=== PATIENT | male | born 1945 | race Caucasian/White ===

== ENCOUNTER 2016-10-03 14:04 | Observation (INO) | payer MEDICARE, OTHER ==
[~2016-10-03 14:04] MED LIST: Lactated Ringers 1,000 ML IV SCH
[2016-10-03] MEDS: Ciprofloxacin in D5W 400 MG in Premix Bag 1 BAG IV SCH ×4 (14:52→15:12)
[2016-10-03] MEDS ORDERED: Ampicillin 1 GM in Sodium Chloride 0.9% 50 ML IV SCH ×2 (15:45→15:50)
[2016-10-03] MEDS: Ampicillin 1 GM in Sodium Chloride 0.9% 50 ML IV SCH ×2 (16:10→21:04)
[2016-10-03] MEDS: Lactated Ringers 1,000 ML IV SCH (16:13)
[2016-10-03 16:40] LABS: CHLORIDE,CL 105 mmol/L (98-110); SODIUM,NA 139 mmol/L (136-146)
[2016-10-03] MEDS ORDERED: METFORMIN HCL 1000 MG PO SCH (18:00)
--- NOTE | 2016-10-03 20:21 | PCM.PREANE ---
Preanesthetic Assessment - ANESTHESIA/TRANSFUSION/FAMILY HX Anesthesia/Transfusion History: No Prior Transfusion(s), Prior Anesthesia Type of Anesthesia Reaction: Denies: Allergy, Anesthesia Awareness, Excessive Somnolence, Excessive Nausea/Vomiting, Excessive Itching, Excessive Shivering, Malignant Hyperthermia, Malignant Hyperthermia, Family History, Pseudocholinesterase Deficiency, Pseudocholinesterase Deficiency, Family History of, Urinary Retention, Unknown, Other (see below) Family History of Anesthesia Reaction: No Intubation History: Unknown - REVIEW OF SYSTEMS Constitutional: Reports: no symptoms 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: no symptoms Respiratory: Reports: no symptoms Cardiovascular: Reports: no symptoms, blood pressure problem (hypertension, controlled) GI: Reports: no symptoms Other: Reports: easy bleeding (attributes to Eliquis), easy bruising, diabetes - PHYSICAL ASSESSMENT O2 Sat by Pulse Oximetry: 96 RR: 16 Vital Signs: Last Vital Signs Temp 36.3 C 10/03/16 16:00 Pulse 78 10/03/16 16:00 Resp 16 10/03/16 16:00 BP 119/67 10/03/16 16:00 Pulse Ox 96 10/03/16 16:00 Height: 1.88 m Weight: 100.2 kg NPO Status Date: 10/03/16 NPO Status Time: 23:55 ASA Class: 3 Mental Status: alert & oriented x3 Airway Class: Mallampati = 3 Dentition: Reports: partial (upper) Thyro-Mental Finger Breadths: 3 Mouth Opening Finger Breadths: 3 ROM/Head Extension: full Respiratory Status: lungs clear to auscultation bilaterally Cardiovascular Status: regular rate & rhythm, no murmur, blood pressure WNL - LAB Values: Laboratory Last Values WBC 8.57 K/uL (4.0-11.0) 10/03/16 16:02 RBC 4.71 M/uL (4.50-5.90) 10/03/16 16:02 Hgb 14.6 g/dL (13.0-17.0) 10/03/16 16:02 Hct 43.4 % (38.0-50.0) 10/03/16 16:02 MCV 92.1 fL (80.0-98.0) 10/03/16 16:02 MCH 31.0 pg (27.0-32.0) 10/03/16 16:02 MCHC 33.6 g/dL (31.0-37.0) 10/03/16 16:02 RDW Std Deviation 43.3 fl (28.0-62.0) 10/03/16 16:02 RDW Coeff of Kevin 13 % (11.0-15.0) 10/03/16 16:02 Plt Count 42 K/uL (150-400) L 10/03/16 16:02 MPV 10.00 fL (7.40-12.00) 10/03/16 16:02 Neut % (Auto) 76.8 % (48.0-80.0) 10/03/16 16:02 Lymph % (Auto) 14.4 % (16.0-40.0) L 10/03/16 16:02 [place] % (Auto) 7.8 % (0.0-15.0) 10/03/16 16:02 Eos % (Auto) 0.9 % (0.0-7.0) 10/03/16 16:02 Baso % (Auto) 0.1 % (0.0-1.5) 10/03/16 16:02 Neut # 6.6 K/uL (1.4-5.7) H 10/03/16 16:02 Lymph # 1.2 K/uL (0.6-2.4) 10/03/16 16:02 [place] # 0.7 K/uL (0.0-0.8) 10/03/16 16:02 Eos # 0.1 K/uL (0.0-0.7) 10/03/16 16:02 Baso # 0.0 K/uL (0.0-0.1) 10/03/16 16:02 Nucleated RBC % 0.0 /100WBC 10/03/16 16:02 Nucleated RBCs # 0 K/uL 10/03/16 16:02 Sodium 139 mmol/L (136-146) 10/03/16 16:02 Potassium 4.4 mmol/L (3.5-5.1) 10/03/16 16:02 Chloride 105 mmol/L (98-110) 10/03/16 16:02 Carbon Dioxide 26 mmol/L (21-31) 10/03/16 16:02 BUN 18 mg/dL (6.0-23.0) 10/03/16 16:02 Creatinine 1.0 mg/dL (0.6-1.5) 10/03/16 16:02 Est Cr Clr Drug Dosing 78.78 mL/min 10/03/16 16:02 Estimated GFR (MDRD) > 60.0 ml/min 10/03/16 16:02 Glucose 144 mg/dL (60-110) H 10/03/16 16:02 POC Glucose 117 mg/dL (60-110) H 10/03/16 16:37 Calcium 9.2 mg/dL (8.8-10.8) 10/03/16 16:02 Total Bilirubin 0.6 mg/dL (0.1-1.5) 10/03/16 16:02 AST 13 IU/L (5-40) 10/03/16 16:02 ALT 13 IU/L (8-54) 10/03/16 16:02 Alkaline Phosphatase 41 (40-150) 10/03/16 16:02 Total Protein 6.5 g/dL (6.0-8.0) 10/03/16 16:02 Albumin 3.6 g/dL (3.4-4.8) 10/03/16 16:02 Globulin 2.9 g/dL (2.0-3.5) 10/03/16 16:02 Albumin/Globulin Ratio 1.2 (1.3-2.8) L 10/03/16 16:02 - ALLERGIES Allergies/Adverse Reactions: Allergies Allergy/AdvReac Type Severity Reaction Status Date / Time ciprofloxacin Allergy Rash Uncoded 10/03/16 16:11 purple grapes Allergy Rash Uncoded 09/30/16 08:59 - ANESTHESIA PLAN Anesthesia Type Planned: general anesthesia, spinal (anesthetic options discussed with patient. General anesthesia vs spinal. Pt is agreeable to either plan. Plt count only at 42,000 so will re evaluate options prior to surgery. If platelet count continues to be low, will plan for general surgery.) - ACKNOWLEDGEMENTS Pt an appropriate candidate for the planned anesthesia: Yes Alternatives and risks of anesthesia discussed w pt/guardian: Yes Pt/Guardian understands and agree with anesthesia plan: Yes PreAnesthesia Questionnaire - Past Health History Medical/Surgical History: Denies Medical/Surgical History HEENT History: Reports: Impaired vision Cardiovascular History: Reports: Afib (Has had for about 2 years. Denies chest pain or dyspnea with activity.), High cholesterol, Hypertension Gastrointestinal History: Reports: PUD (History of) Genitourinary History: Reports: Prostate disorder, Renal calculus Other Genitourinary History: Pt reported history of prostate enlargement several years ago, states did not undergo surgery. Also states history of kidney stones both kidneys. Musculoskeletal History: Reports: Fracture Neurological History: Reports: Neuropathy, peripheral Endocrine/Metabolic History: Reports: Diabetes, type II Hematologic History: Reports: Anticoagulation therapy (discontinued Eliquis 4 days ago, has been taking baby aspirin 81 mg.) Oncologic (Cancer) History: Reports: Basal cell carcinoma - Infectious Disease History Infectious Disease History: Reports: Chicken pox, Influenza, Measles, Mumps - Past Surgical History HEENT Surgical History: Reports: None Cardiovascular Surgical History: Reports: None GI Surgical History: Reports: None Male Surgical History: Reports: None Endocrine Surgical History: Reports: None Neurological Surgical History: Reports: None Musculoskeletal Surgical History: Reports: None Oncologic Surgical History: Reports: Other (see below) Other Oncologic Surgeries/Procedures: skin biopsy - SUBSTANCE USE Smoking Status *Q: Never Smoker Second Hand Smoke Exposure: No Recreational Drug Use History: No - HOME MEDS Home Medications: Home Meds Dutasteride [Avodart] 0.5 mg PO DAILY 09/21/16 [History] Lisinopril 40 mg PO DAILY 09/21/16 [History] Metoprolol Succinate [Toprol XL] 50 mg PO BEDTIME 09/21/16 [History] Pregabalin [Lyrica] 50 mg PO BEDTIME 09/21/16 [History] Simvastatin [Zocor] 20 mg PO BEDTIME 09/21/16 [History] Tamsulosin [Flomax] 0.4 mg PO DAILY 09/21/16 [History] metFORMIN HCl [Metformin HCl ER] 1,000 mg PO DAILY 09/21/16 [History] Aspirin 1 tab PO DAILY 09/30/16 [History] Apixaban [Eliquis] 5 mg PO BID 10/03/16 [History] - CURRENT (IN HOUSE) MEDS Current Meds: Current Medications Lactated Ringer's (Ringers, Lactated) 1,000 mls @ 100 mls/hr IV ASDIRECTED IES[facility] Last Admin: 10/03/16 16:13 Dose: 100 mls/hr Ampicillin Sodium 1 gm/ Sodium (Chloride) 50 mls @ 100 mls/hr IV Q6H [facility] Last Admin: 10/03/16 16:10 Dose: 100 mls/hr Tobramycin 120 mg/ Sodium (Chloride) 103 mls @ 200 mls/hr IV Q12H [facility] Lisinopril (Prinivil) 40 mg PO DAILY [facility] Metformin HCl (Glucophage Xr) 1,000 mg PO DAILY [facility] Metoprolol Succinate (Toprol Xl) 50 mg PO BEDTIME [facility] Pregabalin (Lyrica) 50 mg PO BEDTIME [facility] Simvastatin (Zocor) 20 mg PO BEDTIME [facility] Discontinued Medications Ciprofloxacin/Dextrose 400 mg/ (Premix) 200 mls @ 200 mls/hr IV Q12H [facility] Last Admin: 10/03/16 15:12 Dose: 200 mls/hr Lactated Ringer's (Ringers, Lactated) 1,000 mls @ 50 mls/hr IV ASDIRECTED [facility] Last Admin: 10/03/16 15:08 Dose: 50 mls/hr Tobramycin 120 mg/ Sodium (Chloride) 103 mls @ 100 mls/hr IV Q12HR ONE Stop: 10/03/16 11:31 Last Admin: 10/03/16 16:03 Dose: Not Given Tobramycin 120 mg/ Sodium (Chloride) 103 mls @ 200 mls/hr IV Q12H [facility] Last Admin: 10/03/16 16:47 Dose: 200 mls/hr Ampicillin Sodium 1 gm/ Sodium (Chloride) 50 mls @ 100 mls/hr IV Q6H [facility] Last Admin: 10/03/16 16:04 Dose: Not Given Ampicillin Sodium 1 gm/ Sodium (Chloride) 50 mls @ 100 mls/hr IV Q6H [facility] Last Admin: 10/03/16 16:03 Dose: Not Given Non-Formulary Medication (Metformin Hcl [Metformin Hcl Er]) 1,000 mg PO DAILY [facility]
[2016-10-03] MEDS ORDERED: Simvastatin 20 MG Tab PO SCH (21:00)
[2016-10-03] MEDS ORDERED: Metoprolol Succinate 50 MG Tab.ER PO SCH (21:00)
[2016-10-03] MEDS ORDERED: Pregabalin 50 MG Cap PO SCH (21:00)
[2016-10-04] MEDS: Lactated Ringers 1,000 ML IV SCH (03:38)
[2016-10-04] MEDS: Ampicillin 1 GM in Sodium Chloride 0.9% 50 ML IV SCH ×2 (03:40→10:36)
[2016-10-04 08:08] VITALS: BP 135/89
--- NOTE | 2016-10-04 08:53 | PCM.SN ---
- Free Text/Narrative Note: I was asked by Dr Mejia to see this man for low platelets. He has a history of atrial fibrillation. He had been on eliquis. His platelets yesterday were 42K and today are 25K. I spoke also with his primary attending, Dr Maynard. We both agree that it is prudent to avoid any anticoagulation currently. He may be discharged home as per Dr Mejia. TURP was cancelled. Follow up CBC with DR Maynard planned tomorrow. Bharati Grove MD
[2016-10-04] MEDS ORDERED: Lisinopril 10 MG Tab PO SCH (09:00)
[2016-10-04] MEDS ORDERED: metFORMIN 500 MG Tab.ER PO SCH (09:00)
== END 2016-10-04 10:49 | disposition home or self-care (01) ==
LOC: MW.SDS 14:04 → MW.MS 14:06
PROVIDERS: ADMIT Urology; ATTEND Urology
DX: I48.91 Unspecified atrial fibrillation (principal); N40.1 Benign prostatic hyperplasia with lower urinary tract symptoms; N13.8 Other obstructive and reflux uropathy; Z53.8 Procedure and treatment not carried out for other reasons; H69.80 Other specified disorders of Eustachian tube, unspecified ear; Z85.828 Personal history of other malignant neoplasm of skin; Z87.730 Personal history of (corrected) cleft lip and palate; Z87.19 Personal history of other diseases of the digestive system; Z86.79 Personal history of other diseases of the circulatory system; Z87.442 Personal history of urinary calculi; N42.9 Disorder of prostate, unspecified; C44.310 Basal cell carcinoma of skin of unspecified parts of face; C44.309 Unspecified malignant neoplasm of skin of other parts of face; Z98.890 Other specified postprocedural states; Z72.0 Tobacco use; Z79.899 Other long term (current) drug therapy; Z88.1 Allergy status to other antibiotic agents; Z91.018 Allergy to other foods
CPT/HCPCS: 36415; 80053; 82962; 85025; 96361; 96365; 96366; 96367; A9270; G0378; J0290; J0744; J3260; J7030; J7050; J7120; G0379

== ENCOUNTER → 2016-10-05 | Outpatient (CLI) | payer MEDICARE, OTHER | LOC: MW.CHFP 15:13 | PROVIDERS: ATTEND Emergency Medicine | DX: D69.59 Other secondary thrombocytopenia (principal) | CPT/HCPCS: 36415; 85027; G0463 ==

== ENCOUNTER → 2016-10-07 | Outpatient (CLI) | payer MEDICARE, OTHER | LOC: MW.CHFP 12:31 | PROVIDERS: ATTEND Emergency Medicine | DX: D69.6 Thrombocytopenia, unspecified (principal) | CPT/HCPCS: 36415; 85027 ==

== ENCOUNTER → 2016-10-10 | Outpatient (CLI) | payer MEDICARE, OTHER | LOC: MW.CHIM 09:40 | PROVIDERS: ATTEND Internal Medicine | DX: D69.6 Thrombocytopenia, unspecified (principal) | CPT/HCPCS: 36415; 83010; 83615; 85025; 85384; 85610; 88104; 99214 ==

== ENCOUNTER → 2016-10-12 | Outpatient (CLI) | payer MEDICARE, OTHER | LOC: MW.CHIM 12:06 | PROVIDERS: ATTEND Internal Medicine | DX: D69.6 Thrombocytopenia, unspecified (principal) | CPT/HCPCS: 36415; 85025 ==

== ENCOUNTER → 2016-10-14 | Outpatient (CLI) | payer MEDICARE, OTHER | LOC: MW.CHIM 08:00 | PROVIDERS: ATTEND Internal Medicine | DX: D69.6 Thrombocytopenia, unspecified (principal); E11.9 Type 2 diabetes mellitus without complications | CPT/HCPCS: 99214 ==

== ENCOUNTER → 2016-10-25 | Outpatient (CLI) | payer MEDICARE, OTHER | LOC: MW.CHUR 08:00 | PROVIDERS: ATTEND Urology | DX: N40.1 Benign prostatic hyperplasia with lower urinary tract symptoms (principal); N13.8 Other obstructive and reflux uropathy; D69.6 Thrombocytopenia, unspecified | CPT/HCPCS: G0463 ==

== ENCOUNTER 2016-11-24 11:56 | Emergency (ER) | payer MEDICARE, OTHER ==
[2016-11-24] MEDS ORDERED: Sodium Chloride 0.9% 2.5 ML Syringe FLUSH PRN (12:09)
[2016-11-24] MEDS ORDERED: Sodium Chloride 0.9% 10 ML Syringe FLUSH PRN (12:09)
--- NOTE | 2016-11-24 12:16 | EDM.PDOC ---
<Ramesh Mcneil - Last Filed: 11/24/16 12:59> ED HISTORY OF PRESENT ILLNESS - General Chief Complaint: Respiratory Problem Stated Complaint: EVALUATION/BLOOD CLOT Time Seen by Provider: 11/24/16 12:10 - Related Data Allergies/ADRs: Allergies Allergy/AdvReac Type Severity Reaction Status Date / Time ciprofloxacin Allergy Rash Uncoded 11/24/16 12:09 purple grapes Allergy Rash Uncoded 11/24/16 12:09 Home Meds: Home Meds Dutasteride [Avodart] 0.5 mg PO DAILY 09/21/16 [History] Lisinopril 40 mg PO DAILY 09/21/16 [History] Metoprolol Succinate [Toprol XL] 50 mg PO BEDTIME 09/21/16 [History] Simvastatin [Zocor] 20 mg PO BEDTIME 09/21/16 [History] Tamsulosin [Flomax] 0.4 mg PO DAILY 09/21/16 [History] metFORMIN HCl [Metformin HCl ER] 1,000 mg PO DAILY 09/21/16 [History] Glimepiride 1 mg PO WITHBREAKFAST 11/24/16 [History] Prednisone [IMW: predniSONE] 40 mg PO WITHBREAKFAST 11/24/16 [History] Course - Vital Signs Last Recorded V/S: Last Vital Signs Temp 36.3 C 11/24/16 11:56 Pulse 102 H 11/24/16 11:56 Resp 18 11/24/16 11:56 BP 105/67 11/24/16 11:56 Pulse Ox 97 11/24/16 11:56 - Orders/Labs/Meds Orders: Active Orders 24 hr Category Date Time Status EKG 12 Lead [EKG Documentation Completion] [RC] STAT Care 11/24/16 12:06 Inactive EKG Documentation Completion [RC] STAT Care 11/24/16 12:10 Active Pulse Oximetry [RC] ASDIRECTED Care 11/24/16 12:10 Active COMPREHENSIVE METABOLIC PN,CMP [CHEM] Stat Lab 11/24/16 12:27 Received Sodium Chloride 0.9% [Saline Flush] Med 11/24/16 12:09 Active 10 ml FLUSH ASDIRECTED PRN Sodium Chloride 0.9% [Saline Flush] Med 11/24/16 12:09 Active 2.5 ml FLUSH ASDIRECTED PRN Saline Lock Insert [OM.PC] Stat Oth 04/20/17 12:09 Ordered Medication Orders Sodium Chloride (Saline Flush) 10 ml FLUSH ASDIRECTED PRN PRN Reason: Keep Vein Open Sodium Chloride (Saline Flush) 2.5 ml FLUSH ASDIRECTED PRN PRN Reason: Keep Vein Open Labs: Laboratory Tests 11/24/16 11/24/16 Range/Units 12:27 12:27 WBC 12.74 H (4.0-11.0) K/uL RBC 4.53 (4.50-5.90) M/uL Hgb 14.5 (13.0-17.0) g/dL Hct 42.7 (38.0-50.0) % MCV 94.3 (80.0-98.0) fL MCH 32.0 (27.0-32.0) pg MCHC 34.0 (31.0-37.0) g/dL RDW Std Deviation 52.5 (28.0-62.0) fl RDW Coeff of Kevin 15 (11.0-15.0) % Plt Count 36 L (150-400) K/uL MPV 11.20 (7.40-12.00) fL Add Manual Diff YES Neutrophils % (Manual) 75 (48.0-80.0) % Band Neutrophils % 10 % Lymphocytes % (Manual) 8 L (16.0-40.0) % Monocytes % (Manual) 5 (0.0-15.0) % Eosinophils % (Manual) 1 (0.0-7.0) % Basophils % (Manual) 1 (0.0-1.5) % Nucleated RBC % 0.0 /100WBC Absolute Seg Neuts 9.6 Band Neutrophils # 1.3 Lymphocytes # (Manual) 1.0 Monocytes # (Manual) 0.6 Eosinophils # (Manual) 0.1 Basophils # (Manual) 0 Nucleated RBCs # 0 K/uL INR 1.00 (0.86-1.11) Meds: Medications Generic Name Dose Route Start Last Admin Trade Name Freq PRN Reason Stop Dose Admin Sodium Chloride 10 ml 11/24/16 12:09 Saline Flush FLUSH ASDIRECTED PRN Keep Vein Open Sodium Chloride 2.5 ml 11/24/16 12:09 Saline Flush FLUSH ASDIRECTED PRN Keep Vein Open Departure - Departure Time of Disposition: 12:59 Disposition: DC/Tfer to Acute Hospital 02 Condition: good Clinical Impression: Pulmonary embolism, History of ITP Referrals: Brandon Maynard MD [Primary Care Provider] - Forms: ED Department Discharge - My Orders Last 24 Hours: My Active Orders 11/24/16 12:06 EKG 12 Lead [EKG Documentation Completion] [RC] STAT - Assessment/Plan Last 24 Hours: My Active Orders 11/24/16 12:06 EKG 12 Lead [EKG Documentation Completion] [RC] STAT <Tony Martinez - Last Filed: 11/24/16 13:03> ED HISTORY OF PRESENT ILLNESS - General Source of Information: Reports: Patient History Limitations: Reports: No limitations - History of Present Illness INITIAL COMMENTS - FREE TEXT/NARRATIVE: History of present illness: [71-year-old male presenting with history of positive PE study done per the oncology center. Patient denies shortness of breath, any frothy or foamy sputum , he did indicate he had a transient discomfort in his right shoulder last night that he had to put down to stress.] Review of systems: As per history of present illness and below otherwise all systems reviewed and negative. Past medical history: As per history of present illness and as reviewed below otherwise noncontributory. Surgical history: As per history of present illness and as reviewed below otherwise noncontributory. Social history: No reported history of drug or alcohol abuse. Family history: As per history of present illness and as reviewed below otherwise noncontributory. Physical exam: HEENT: Atraumatic, normocephalic, pupils reactive, negative for conjunctival pallor or scleral icterus, mucous membranes moist, throat clear, neck supple, nontender, trachea midline. Lungs: Clear to auscultation, breath sounds equal bilaterally, chest nontender. Heart: S1S2, regular, negative for clicks, rubs, or JVD. Abdomen: Soft, nondistended, nontender. Negative for masses or hepatosplenomegaly. Negative for costovertebral tenderness. Pelvis: Stable nontender. Genitourinary: Deferred. Rectal: Deferred. Extremities: Atraumatic, negative for cords or calf pain. Neurovascular unremarkable. Neuro: Awake, alert, oriented. Cranial nerves II through XII unremarkable. Cerebellum unremarkable. Motor and sensory unremarkable throughout. Exam nonfocal. Global assessment was benign save patients history of some subjective right- sided shoulder pressure at last night that he put down to stress. This indicated it was transient and has not having at this time the Diagnostics: [CBC, CMP, PT/INR, EKG, chest x-ray] Therapeutics: [] Impression: [Bilateral PEs / radiographic study] Plan: [Transfer] Definitive disposition and diagnosis as appropriate pending reevaluation and review of above. Past Medical History - Past Health History Medical/Surgical History: Denies Medical/Surgical History HEENT History: Reports: Impaired vision Cardiovascular History: Reports: Afib (Has had for about 2 years. Denies chest pain or dyspnea with activity.), High cholesterol, Hypertension Gastrointestinal History: Reports: PUD (History of) Genitourinary History: Reports: Prostate disorder, Renal calculus Other Genitourinary History: Pt reported history of prostate enlargement several years ago, states did not undergo surgery. Also states history of kidney stones both kidneys. Musculoskeletal History: Reports: Fracture Neurological History: Reports: Neuropathy, peripheral Endocrine/Metabolic History: Reports: Diabetes, type II Hematologic History: Reports: Anticoagulation therapy (discontinued Eliquis 4 days ago, has been taking baby aspirin 81 mg.) Oncologic (Cancer) History: Reports: Basal cell carcinoma - Infectious Disease History Infectious Disease History: Reports: Chicken pox, Influenza, Measles, Mumps - Past Surgical History HEENT Surgical History: Reports: None Cardiovascular Surgical History: Reports: None GI Surgical History: Reports: None Male Surgical History: Reports: None Endocrine Surgical History: Reports: None Neurological Surgical History: Reports: None Musculoskeletal Surgical History: Reports: None Oncologic Surgical History: Reports: Other (see below) Other Oncologic Surgeries/Procedures: skin biopsy Social & Family History - Family History Family Medical History: Noncontributory HEENT: Reports: Impaired vision Cardiac: Reports: Other (see below) Other Cardiac Family History: "heart exploded" - dad GI: Reports: PUD OBGYN: Reports: Endocrine/Metabolic: Reports: Diabetes, type II Oncologic: Reports: Bone, Other (see below) Other Oncologic Family History: gastric CA - Tobacco Use Smoking Status *Q: Never Smoker Second Hand Smoke Exposure: No - Caffeine Use Caffeine Use: Reports: Coffee, Soda Caffeine Use Comment: 2cups/day - Recreational Drug Use Recreational Drug Use: No ED ROS GENERAL - Review of Systems Review Of Systems: See Below (The history of present illness) ED EXAM, GENERAL - Physical Exam Exam: See Below (See history of present illness) Course - Vital Signs Last Recorded V/S: Last Vital Signs Temp 36.3 C 11/24/16 11:56 Pulse 102 H 11/24/16 11:56 Resp 18 11/24/16 11:56 BP 105/67 11/24/16 11:56 Pulse Ox 97 11/24/16 11:56 - Orders/Labs/Meds Labs: Laboratory Tests 11/24/16 11/24/16 Range/Units 12:27 12:27 WBC 12.74 H (4.0-11.0) K/uL RBC 4.53 (4.50-5.90) M/uL Hgb 14.5 (13.0-17.0) g/dL Hct 42.7 (38.0-50.0) % MCV 94.3 (80.0-98.0) fL MCH 32.0 (27.0-32.0) pg MCHC 34.0 (31.0-37.0) g/dL RDW Std Deviation 52.5 (28.0-62.0) fl RDW Coeff of Kevin 15 (11.0-15.0) % Plt Count 36 L (150-400) K/uL MPV 11.20 (7.40-12.00) fL Add Manual Diff YES Neutrophils % (Manual) 75 (48.0-80.0) % Band Neutrophils % 10 % Lymphocytes % (Manual) 8 L (16.0-40.0) % Monocytes % (Manual) 5 (0.0-15.0) % Eosinophils % (Manual) 1 (0.0-7.0) % Basophils % (Manual) 1 (0.0-1.5) % Nucleated RBC % 0.0 /100WBC Absolute Seg Neuts 9.6 Band Neutrophils # 1.3 Lymphocytes # (Manual) 1.0 Monocytes # (Manual) 0.6 Eosinophils # (Manual) 0.1 Basophils # (Manual) 0 Nucleated RBCs # 0 K/uL INR 1.00 (0.86-1.11) Meds: Medications Generic Name Dose Route Start Last Admin Trade Name Freq PRN Reason Stop Dose Admin Sodium Chloride 10 ml 11/24/16 12:09 Saline Flush FLUSH ASDIRECTED PRN Keep Vein Open Sodium Chloride 2.5 ml 11/24/16 12:09 Saline Flush FLUSH ASDIRECTED PRN Keep Vein Open
--- NOTE | 2016-11-24 12:59 | CR ---
EXAMINATION: Two-view chest (PA and Lateral views). HISTORY: Shortness of breath. FINDINGS: The trachea is midline. The cardiomediastinal silhouette is within normal limits. No pulmonary infil trates, effusions or pneumothorax. Osseous structures appear unremarkable. IMPRESSION: No acute cardiopulmonary process.
[2016-11-24 14:18] VITALS: BP 102/76
== END 2016-11-24 14:18 ==
LOC: MW.ED 11:56
DX: I26.99 Other pulmonary embolism without acute cor pulmonale (principal); I10 Essential (primary) hypertension; E78.00 Pure hypercholesterolemia, unspecified; E11.9 Type 2 diabetes mellitus without complications; Z98.890 Other specified postprocedural states; Z85.828 Personal history of other malignant neoplasm of skin; Z79.84 Long term (current) use of oral hypoglycemic drugs; Z79.899 Other long term (current) drug therapy; Z88.1 Allergy status to other antibiotic agents
CPT/HCPCS: 36415; 71010; 71010-26; 80053; 85025; 85610; 93005; 99285; 99285-25

== ENCOUNTER 2016-12-05 11:06 | Inpatient (IN) | payer MEDICARE, OTHER ==
--- NOTE | 2016-12-05 11:26 | EDM.PDOC ---
ED HISTORY OF PRESENT ILLNESS - General Chief Complaint: Syncope Stated Complaint: FALL,DIZZY Time Seen by Provider: 12/05/16 11:17 Source of Information: Reports: Patient History Limitations: Reports: No limitations - History of Present Illness INITIAL COMMENTS - FREE TEXT/NARRATIVE: HISTORY AND PHYSICAL: History of present illness: [71-year-old male with a history of atrial fibrillation previously on Eliquis, however patient developed a complication of severe thrombocytopenia. Eliquis was discontinued and the patient was not anticoagulated for 2 months. Patient was then diagnosed with a pulmonary embolism and Xarelto was started. His been compliant with Xarelto dosing since that time.. Today patient experienced onset of palpitations and near syncope. He denies shortness of breath. No chest pain or pressure.] Patient realized his heart rate was rapidly came to the emergency department for evaluation Review of systems: As per history of present illness and below otherwise all systems reviewed and negative. Past medical history: As per history of present illness and as reviewed below otherwise noncontributory. Surgical history: As per history of present illness and as reviewed below otherwise noncontributory. Social history: No reported history of drug or alcohol abuse. Family history: As per history of present illness and as reviewed below otherwise noncontributory. Physical exam: HEENT: Atraumatic, normocephalic, pupils reactive, negative for conjunctival pallor or scleral icterus, mucous membranes moist, throat clear, neck supple, nontender, trachea midline. Lungs: Clear to auscultation, breath sounds equal bilaterally, chest nontender. Heart: S1S2, tachycardia 130s, 140s, irregularly irregular, negative for clicks , rubs, or JVD. Abdomen: Soft, nondistended, nontender. Negative for masses or hepatosplenomegaly. Negative for costovertebral tenderness. Pelvis: Stable nontender. Genitourinary: Deferred. Rectal: Deferred. Extremities: Atraumatic, negative for cords or calf pain. Neurovascular unremarkable. Neuro: Awake, alert, oriented. Cranial nerves grossly unremarkable. Cerebellum unremarkable. Motor and sensory unremarkable throughout. Exam nonfocal. Diagnostics: [] Therapeutics: [] Impression: [] Plan: [Patient with atrial fibrillation with rapid ventricular response. Tachycardic 130s 140s on arrival. Cardizem bolus and drip initiated. Patient's heart rate improved however he then became hypotensive. Cardizem infusion stopped. Blood pressure improved with hydration. Case discussed with Dr. Celso Boyd hospitalist second language tutor who is aware of history and findings requests admission to a telemetry bed as he intends to transition the patient to by mouth meds. Discussed with housekeeping attendant Yair patient cannot go to a floor bed until his blood pressure has normalized and his tachycardia remains well controlled.] Definitive disposition and diagnosis as appropriate pending reevaluation and review of above. Critical care 75 minutes - Related Data Allergies/ADRs: Allergies Allergy/AdvReac Type Severity Reaction Status Date / Time ciprofloxacin Allergy Rash Uncoded 12/05/16 11:13 purple grapes Allergy Rash Uncoded 12/05/16 11:13 Home Meds: Home Meds Dutasteride [Avodart] 0.5 mg PO BEDTIME 09/21/16 [History] Lisinopril 40 mg PO DAILY 09/21/16 [History] Metoprolol Succinate [Toprol XL] 50 mg PO BEDTIME 09/21/16 [History] Simvastatin [Zocor] 20 mg PO BEDTIME 09/21/16 [History] Tamsulosin [Flomax] 0.4 mg PO DAILY 09/21/16 [History] metFORMIN HCl [Metformin HCl ER] 1,000 mg PO DAILY 09/21/16 [History] Glimepiride 1 mg PO WITHBREAKFAST 11/24/16 [History] Prednisone [IMW: predniSONE] 10 mg PO BID 11/24/16 [History] Rivaroxaban [Xarelto] 20 mg PO DAILY 12/05/16 [History] Past Medical History - Past Health History Medical/Surgical History: Denies Medical/Surgical History HEENT History: Reports: Impaired vision Cardiovascular History: Reports: Afib, High cholesterol, Hypertension Gastrointestinal History: Reports: PUD Genitourinary History: Reports: Prostate disorder, Renal calculus Other Genitourinary History: Pt reported history of prostate enlargement several years ago, states did not undergo surgery. Also states history of kidney stones both kidneys. Musculoskeletal History: Reports: Fracture Neurological History: Reports: Neuropathy, peripheral Endocrine/Metabolic History: Reports: Diabetes, type II Hematologic History: Reports: Anticoagulation therapy Oncologic (Cancer) History: Reports: Basal cell carcinoma - Infectious Disease History Infectious Disease History: Reports: Chicken pox, Influenza, Measles, Mumps - Past Surgical History HEENT Surgical History: Reports: None Cardiovascular Surgical History: Reports: None GI Surgical History: Reports: None Male Surgical History: Reports: None Endocrine Surgical History: Reports: None Neurological Surgical History: Reports: None Musculoskeletal Surgical History: Reports: None Oncologic Surgical History: Reports: Other (see below) Other Oncologic Surgeries/Procedures: skin biopsy Social & Family History - Family History Family Medical History: Noncontributory HEENT: Reports: Impaired vision Cardiac: Reports: Other (see below) Other Cardiac Family History: "heart exploded" - dad GI: Reports: PUD OBGYN: Reports: Endocrine/Metabolic: Reports: Diabetes, type II Oncologic: Reports: Bone, Other (see below) Other Oncologic Family History: gastric CA - Tobacco Use Smoking Status *Q: Never Smoker Second Hand Smoke Exposure: No - Caffeine Use Caffeine Use: Reports: None Caffeine Use Comment: 2cups/day - Recreational Drug Use Recreational Drug Use: No ED ROS GENERAL - Review of Systems Review Of Systems: See Below (Per history of present illness) ED EXAM, GENERAL - Physical Exam Exam: See Below (Per history of present illness) Course - Vital Signs Last Recorded V/S: Last Vital Signs Temp 37.6 C 12/05/16 13:47 Pulse 93 12/05/16 13:47 Resp 18 12/05/16 13:47 BP 93/63 12/05/16 13:47 Pulse Ox 96 12/05/16 13:47 - Orders/Labs/Meds Orders: Active Orders 24 hr Category Date Time Status Admission Status [Patient Status] [ADT] Stat ADT 12/05/16 12:46 Active EKG Documentation Completion [RC] STAT Care 12/05/16 11:39 Active Peripheral IV Care [RC] . DIRECTED Care 12/05/16 11:37 Active Diltiazem [Cardizem] 100 mg Med 12/05/16 12:30 Active Sodium Chloride 0.9% [Normal Saline] 100 ml IV TITRATE Sodium Chloride 0.9% [Normal Saline] 1,000 ml Med 12/05/16 13:13 Active IV .Bolus Peripheral IV Insertion Adult [OM.PC] Stat Oth 12/05/16 11:37 Ordered Medication Orders Diltiazem HCl 100 mg/ Sodium (Chloride) 100 mls @ 5 mls/hr IV TITRATE IESHA; 5 MG /HR PRN Reason: Protocol Last Admin: 12/05/16 12:43 Dose: 5 mg/hr, 5 mls/hr Sodium Chloride (Normal Saline) 1,000 mls @ 999 mls/hr IV .Bolus ONE Stop: 12/05/16 14:13 Last Admin: 12/05/16 13:14 Dose: 999 mls/hr Labs: Laboratory Tests 12/05/16 12/05/16 12/05/16 Range/Units 11:37 11:43 11:43 WBC 4.79 (4.0-11.0) K/uL RBC 3.91 L (4.50-5.90) M/uL Hgb 12.2 L (13.0-17.0) g/dL Hct 35.5 L (38.0-50.0) % MCV 90.8 (80.0-98.0) fL MCH 31.2 (27.0-32.0) pg MCHC 34.4 (31.0-37.0) g/dL RDW Std Deviation 50.8 (28.0-62.0) fl RDW Coeff of Kevin 16 H (11.0-15.0) % Plt Count 234 (150-400) K/uL MPV 9.40 (7.40-12.00) fL Neut % (Auto) 86.9 H (48.0-80.0) % Lymph % (Auto) 7.1 L (16.0-40.0) % [place] % (Auto) 5.6 (0.0-15.0) % Eos % (Auto) 0.2 (0.0-7.0) % Baso % (Auto) 0.2 (0.0-1.5) % Neut # (Auto) 4.2 (1.4-5.7) K/uL Lymph # (Auto) 0.3 L (0.6-2.4) K/uL [place] # (Auto) 0.3 (0.0-0.8) K/uL Eos # (Auto) 0.0 (0.0-0.7) K/uL Baso # (Auto) 0.0 (0.0-0.1) K/uL Nucleated RBC % 0.7 /100WBC Nucleated RBCs # 0 K/uL Sodium (136-146) mmol/L Potassium (3.5-5.1) mmol/L Chloride (98-110) mmol/L Carbon Dioxide (21-31) mmol/L BUN (6.0-23.0) mg/dL Creatinine (0.6-1.5) mg/dL Est Cr Clr Drug Dosing mL/min Estimated GFR (MDRD) ml/min Glucose (60-110) mg/dL Calcium (8.8-10.8) mg/dL Total Bilirubin (0.1-1.5) mg/dL AST (5-40) IU/L ALT (8-54) IU/L Alkaline Phosphatase (40-150) Troponin I < 0.10 (0.0-0.29) NG/ML Total Protein (6.0-8.0) g/dL Albumin (3.4-4.8) g/dL Globulin (2.0-3.5) g/dL Albumin/Globulin Ratio (1.3-2.8) Free T4 1.27 (0.7-1.48) ng/dL TSH 3rd Generation 2.17 (0.47-5.0) uIU/mL 12/05/16 Range/Units 11:43 WBC (4.0-11.0) K/uL RBC (4.50-5.90) M/uL Hgb (13.0-17.0) g/dL Hct (38.0-50.0) % MCV (80.0-98.0) fL MCH (27.0-32.0) pg MCHC (31.0-37.0) g/dL RDW Std Deviation (28.0-62.0) fl RDW Coeff of Kevin (11.0-15.0) % Plt Count (150-400) K/uL MPV (7.40-12.00) fL Neut % (Auto) (48.0-80.0) % Lymph % (Auto) (16.0-40.0) % [place] % (Auto) (0.0-15.0) % Eos % (Auto) (0.0-7.0) % Baso % (Auto) (0.0-1.5) % Neut # (Auto) (1.4-5.7) K/uL Lymph # (Auto) (0.6-2.4) K/uL [place] # (Auto) (0.0-0.8) K/uL Eos # (Auto) (0.0-0.7) K/uL Baso # (Auto) (0.0-0.1) K/uL Nucleated RBC % /100WBC Nucleated RBCs # K/uL Sodium 135 L (136-146) mmol/L Potassium 4.1 (3.5-5.1) mmol/L Chloride 101 (98-110) mmol/L Carbon Dioxide 20 L (21-31) mmol/L BUN 20 (6.0-23.0) mg/dL Creatinine 1.0 (0.6-1.5) mg/dL Est Cr Clr Drug Dosing 78.78 mL/min Estimated GFR (MDRD) > 60.0 ml/min Glucose 149 H (60-110) mg/dL Calcium 8.9 (8.8-10.8) mg/dL Total Bilirubin 0.5 (0.1-1.5) mg/dL AST 42 H (5-40) IU/L ALT 23 (8-54) IU/L Alkaline Phosphatase 33 L (40-150) Troponin I (0.0-0.29) NG/ML Total Protein 6.3 (6.0-8.0) g/dL Albumin 2.7 L (3.4-4.8) g/dL Globulin 3.6 H (2.0-3.5) g/dL Albumin/Globulin Ratio 0.8 L (1.3-2.8) Free T4 (0.7-1.48) ng/dL TSH 3rd Generation (0.47-5.0) uIU/mL Meds: Medications Generic Name Dose Route Start Last Admin Trade Name Freq PRN Reason Stop Dose Admin Diltiazem HCl 100 mg/ Sodium 100 mls @ 5 mls/hr 12/05/16 12:30 12/05/16 12:43 Chloride IV 5 mg/hr TITRATE IESHA 5 mls/hr Protocol Administration 5 MG/HR Sodium Chloride 1,000 mls @ 999 mls/hr 12/05/16 13:13 12/05/16 13:14 Normal Saline IV 12/05/16 14:13 999 mls/hr .Bolus ONE Administration Discontinued Medications Generic Name Dose Route Start Last Admin Trade Name Freq PRN Reason Stop Dose Admin Diltiazem HCl 20 mg 12/05/16 12:25 12/05/16 12:43 Diltiazem IVPUSH 12/05/16 12:26 20 mg ONETIME ONE Administration Departure - Departure Time of Disposition: 12:43 Disposition: Refer to Observation Condition: good Clinical Impression: Atrial fibrillation with rapid ventricular response, Tachycardia, Near syncope - My Orders Last 24 Hours: My Active Orders 12/05/16 11:37 Peripheral IV Care [RC] . DIRECTED Peripheral IV Insertion Adult [OM.PC] Stat 12/05/16 11:39 EKG Documentation Completion [RC] STAT 12/05/16 12:30 Diltiazem [Cardizem] 100 mg Sodium Chloride 0.9% [Normal Saline] 100 ml IV TITRATE 12/05/16 12:46 Admission Status [Patient Status] [ADT] Stat 12/05/16 13:13 Sodium Chloride 0.9% [Normal Saline] 1,000 ml IV .Bolus - Assessment/Plan Last 24 Hours: My Active Orders 12/05/16 11:37 Peripheral IV Care [RC] . DIRECTED Peripheral IV Insertion Adult [OM.PC] Stat 12/05/16 11:39 EKG Documentation Completion [RC] STAT 12/05/16 12:30 Diltiazem [Cardizem] 100 mg Sodium Chloride 0.9% [Normal Saline] 100 ml IV TITRATE 12/05/16 12:46 Admission Status [Patient Status] [ADT] Stat 12/05/16 13:13 Sodium Chloride 0.9% [Normal Saline] 1,000 ml IV .Bolus
--- NOTE | 2016-12-05 12:19 | CR ---
EXAMINATION: Portable chest radiograph. HISTORY: Chest eval. FINDINGS: The trachea is midline. The cardiomediastinal silhouette is within normal limits. No pulmonary infil trates, effusions or pneumothorax. There is stable left basilar scarring. Possible mild perihilar in filtrates versus increased vascular prominence. Osseous structures appear unremarkable. IMPRESSION: 1. Possible mild perihilar prominence versus vascular congestion. Correlate clinically for CHF.
[2016-12-05 12:23] LABS: CHLORIDE,CL 101 mmol/L (98-110); SODIUM,NA 135 mmol/L (136-146)
[2016-12-05] MEDS ORDERED: Diltiazem 25 MG/5 ML SDV IVPUSH ONE (12:25)
[2016-12-05] MEDS ORDERED: Diltiazem 100 MG in Sodium Chloride 0.9% 100 ML IV SCH (12:30)
[2016-12-05] MEDS ORDERED: Sodium Chloride 0.9% 1,000 ML IV ONE (13:13)
[2016-12-05] MEDS ORDERED: Albuterol 0.083% 2.5 MG/3 ML Neb Soln NEB PRN (15:05)
[2016-12-05] MEDS ORDERED: Ondansetron 4 MG Tab.DIS PO PRN (15:05)
[2016-12-05] MEDS ORDERED: Acetaminophen 325 MG Tab PO PRN (15:05)
--- NOTE | 2016-12-05 15:34 | PCM.HP ---
<Dennis Daley - Last Filed: 12/05/16 15:35> H&P History of Present Illness - General Date of Service: 12/05/16 Admit Problem/Dx: Atrial fibrillation with RVR, near syncope Source of Information: Patient History Limitations: Reports: No limitations - History of Present Illness Initial Comments - Free Text/Narative: 71-year-old male with a past medical history of hypertension, hypercholesterolemia and diabetes mellitus type 2 that is admitted with atrial fibrillation with RVR and near syncope. Patient states that he has been experiencing dizziness over the past few months but over the past few days it has been getting worse. He was walking through his house today when he fell to his knees secondary to lightheadedness and dizziness. His brought him to the emergency room where he was found to be in A. fib with RVR. Patient has had a diagnosis of atrial fibrillation over many years and currently follows with transportation aide, Dr. Guillermo Franklin in [place], [place]. He was initially anticoagulated with Eliquis but developed thrombocytopenia. Secondary to this development the Eliquis was discontinued and the patient subsequently developed pulmonary embolism for which she was hospitalized for 6 days in [place], [place]. While admitted he was started on Xarelto and currently remains on Xarelto for anticoagulation for atrial fibrillation and treatment for his pulmonary embolism. He is currently on metoprolol succinate 50 mg daily for rate control for his atrial fibrillation. With his near syncopal episode, the patient denies any shortness of breath, chest pain, pressure, cough, wheezing, abdominal pain, nausea, vomiting, constipation, diarrhea, orthopnea, peripheral edema. ER treatment: Patient was given a 20 mg Cardizem bolus and started on a Cardizem drip which brought his heart rate down to less than 100 but he also became hypotensive. He was given a 1 L normal saline bolus which helped increase his blood pressure. CBC shows normal white blood cell count and normal platelet count. CMP is fairly unremarkable. Initial troponin was negative. TSH/T4 was negative. Chest x -ray showed perihilar prominence versus vascular congestion which should be correlated with congestive heart failure. - Related Data Allergies/Adverse Reactions: Allergies Allergy/AdvReac Type Severity Reaction Status Date / Time ciprofloxacin Allergy Rash Uncoded 12/05/16 11:13 purple grapes Allergy Rash Uncoded 05/01/17 11:13 Home Medications: Home Meds Dutasteride [Avodart] 0.5 mg PO BEDTIME 09/21/16 [History] Metoprolol Succinate [Toprol XL] 50 mg PO BEDTIME 09/21/16 [History] Simvastatin [Zocor] 20 mg PO BEDTIME 09/21/16 [History] Tamsulosin [Flomax] 0.4 mg PO BEDTIME 09/21/16 [History] metFORMIN HCl [Metformin HCl ER] 1,000 mg PO BEDTIME 09/21/16 [History] Glimepiride 1 mg PO WITHBREAKFAST 11/24/16 [History] Prednisone [IMW: predniSONE] 10 mg PO BID 11/24/16 [History] Rivaroxaban [Xarelto] 15 mg PO BID 12/05/16 [History] Past Medical History - Past Health History Medical/Surgical History: Denies Medical/Surgical History HEENT History: Reports: Impaired vision Cardiovascular History: Reports: Afib, High cholesterol, Hypertension Gastrointestinal History: Reports: PUD Genitourinary History: Reports: Prostate disorder, Renal calculus Other Genitourinary History: Pt reported history of prostate enlargement several years ago, states did not undergo surgery. Also states history of kidney stones both kidneys. Musculoskeletal History: Reports: Fracture Neurological History: Reports: Neuropathy, peripheral Endocrine/Metabolic History: Reports: Diabetes, type II Hematologic History: Reports: Anticoagulation therapy Oncologic (Cancer) History: Reports: Basal cell carcinoma - Infectious Disease History Infectious Disease History: Reports: Chicken pox, Influenza, Measles, Mumps - Past Surgical History HEENT Surgical History: Reports: None Cardiovascular Surgical History: Reports: None GI Surgical History: Reports: None Male Surgical History: Reports: None Endocrine Surgical History: Reports: None Neurological Surgical History: Reports: None Musculoskeletal Surgical History: Reports: None Oncologic Surgical History: Reports: Other (see below) Other Oncologic Surgeries/Procedures: skin biopsy Social & Family History - Family History Family Medical History: Noncontributory HEENT: Reports: Impaired vision Cardiac: Reports: Other (see below) Other Cardiac Family History: "heart exploded" - dad GI: Reports: PUD OBGYN: Reports: Endocrine/Metabolic: Reports: Diabetes, type II Oncologic: Reports: Bone, Other (see below) Other Oncologic Family History: gastric CA - Tobacco Use Smoking Status *Q: Never Smoker Second Hand Smoke Exposure: No - Caffeine Use Caffeine Use: Reports: None Caffeine Use Comment: 2cups/day - Recreational Drug Use Recreational Drug Use: No H&P Review of Systems - Review of Systems: Review Of Systems: See Below General: Reports: no symptoms HEENT: Reports: no symptoms Pulmonary: Reports: No Symptoms Cardiovascular: Reports: palpitations, lightheadedness, syncope (Near syncope) Gastrointestinal: Reports: No symptoms Genitourinary: Reports: no symptoms Musculoskeletal: Reports: no symptoms Skin: Reports: no symptoms Psychiatric: Reports: no symptoms Neurological: Reports: No Symptoms Hematologic/Lymphatic: Reports: no symptoms Immunologic: Reports: no symptoms Exam - Exam Exam: See Below - Vital Signs Vital Signs: Last Vital Signs Temp 99.7 F 12/05/16 13:47 Pulse 93 12/05/16 13:47 Resp 18 12/05/16 13:47 BP 93/63 12/05/16 13:47 Pulse Ox 96 12/05/16 13:47 Weight: 88.451 kg - Exam Quality Assessment: DVT prophylaxis (scd's, Xarelto) General: alert, oriented, cooperative HEENT: Hearing intact Lungs: Clear to auscultation, Normal respiratory effort Cardiovascular: regular rate, irregular rhythm (Atrial fibrillation) Abdomen: normal bowel sounds, soft Extremities: normal inspection. No: calf tenderness, edema Peripheral Pulses: 2+: radial (L), radial (R) Skin: warm, dry, intact Neuro Extensive - Mental Status: alert, oriented x3, normal mood/affect, normal cognition Psychiatric: alert, normal affect, normal mood - Patient Data Result Diagrams: 12/05/16 11:43 12/05/16 11:43 *Q Meaningful Use (ADM) - VTE *Q VTE Criteria *Q: - Stroke *Q Stroke Criteria *Q: - AMI *Q AMI Criteria *Q: - Problem List (1) Atrial fibrillation with rapid ventricular response SNOMED Code(s): 141936119747055 ICD Code: I48.91 - UNSPECIFIED ATRIAL FIBRILLATION Status: Acute Current Visit: Yes (2) Near syncope SNOMED Code(s): 196855013 ICD Code: R55 - SYNCOPE AND COLLAPSE Status: Acute Current Visit: Yes Problem List Initiated/Reviewed/Updated: Yes Orders Last 24hrs: Active Orders 24 hr Category Date Time Status Patient Status [ADT] Routine ADT 12/05/16 15:05 Ordered Antiembolic Devices [RC] PER UNIT ROUTINE Care 12/05/16 15:08 Ordered Height and Weight [RC] DAILY Care 12/05/16 15:05 Ordered Intake and Output [RC] QSHIFT Care 12/05/16 15:07 Ordered Notify Provider Vital Signs [RC] ASDIRECTED Care 12/05/16 15:07 Ordered Oxygen Therapy [RC] PRN Care 12/05/16 15:05 Ordered Pulse Oximetry [RC] PRN Care 12/05/16 15:07 Ordered RT Aerosol Therapy [RC] ASDIRECTED Care 12/05/16 15:08 Ordered Telemetry Monitoring [Cardiac Monitoring] [RC] Q8H Care 12/05/16 12:57 Active Up With Assistance [RC] ASDIRECTED Care 12/05/16 15:05 Ordered VTE/DVT Education [RC] PER UNIT ROUTINE Care 12/05/16 15:05 Ordered Vital Signs [RC] Q4H Care 12/05/16 15:05 Ordered Heart Healthy Diet [DIET] Diet 12/05/16 Dinner Ordered BASIC METABOLIC PANEL,BMP [CHEM] AM Lab 12/06/16 05:11 Ordered CBC WITH AUTO DIFF [HEME] AM Lab 12/06/16 05:11 Ordered MAGNESIUM [CHEM] Routine Lab 12/05/16 15:05 Ordered Acetaminophen [Tylenol] Med 12/05/16 15:05 Ordered 650 mg PO Q4H PRN Albuterol [Proventil Neb Soln] Med 12/05/16 15:05 Ordered 2.5 mg NEB Q4HRRT PRN Dutasteride [Avodart] Med 12/05/16 21:00 Ordered 0.5 mg PO BEDTIME Glimepiride Med 12/06/16 08:00 Ordered 1 mg PO WITHBREAKFAST Metoprolol Succinate [Toprol XL] Med 12/05/16 21:00 Ordered 50 mg PO BEDTIME Ondansetron [Zofran ODT] Med 12/05/16 15:05 Ordered 4 mg PO Q4H PRN Rivaroxaban [Xarelto] Med 12/05/16 21:00 Ordered 15 mg PO BID Simvastatin [Zocor] Med 12/05/16 21:00 Ordered 20 mg PO BEDTIME Tamsulosin [Flomax] Med 12/05/16 21:00 Ordered 0.4 mg PO BEDTIME metFORMIN HCl [Metformin HCl ER] Med 12/05/16 21:00 Ordered 1,000 mg PO BEDTIME predniSONE Med 12/05/16 21:00 Ordered 10 mg PO BID Sequential Compression Device [OM.PC] Per Unit Routine Oth 12/05/16 15:07 Ordered Resuscitation Status Routine Resus Stat 12/05/16 15:05 Ordered Medication Orders Acetaminophen (Tylenol) 650 mg PO Q4H PRN PRN Reason: Pain (Mild 1-3)/fever Albuterol (Proventil Neb Soln) 2.5 mg NEB Q4HRRT PRN PRN Reason: Shortness Of Breath/wheezing Dutasteride (Avodart) 0.5 mg PO BEDTIME IESHA Glimepiride (Glimepiride) 1 mg PO WITHBREAKFAST IESHA Diltiazem HCl 100 mg/ Sodium (Chloride) 100 mls @ 5 mls/hr IV TITRATE IESHA; 5 MG /HR PRN Reason: Protocol Last Admin: 12/05/16 12:43 Dose: 5 mg/hr, 5 mls/hr Metformin HCl (Glucophage Xr) 1,000 mg PO BEDTIME IESHA Metoprolol Succinate (Toprol Xl) 50 mg PO BEDTIME IESHA Non-Formulary Medication (Rivaroxaban [Xarelto]) 15 mg PO BID IESHA Ondansetron HCl (Zofran Odt) 4 mg PO Q4H PRN PRN Reason: nausea, able to take PO Prednisone (Prednisone) 10 mg PO BID IESHA Simvastatin (Zocor) 20 mg PO BEDTIME IESHA Tamsulosin HCl (Flomax) 0.4 mg PO BEDTIME IESHA Assessment/Plan Comment:: 71-year-old male admitted with atrial fibrillation with RVR and a near syncopal episode. #1. Atrial fibrillation with RVR: -Patient given 20 mg Cardizem bolus and started on a Cardizem drip on the ER which made the patient hypotensive but did decrease his heart rate within normal limits. He was given a normal saline bolus to help improve his blood pressure. -Patient will be restarted on his home medication of metoprolol succinate 50 mg daily. -Patient on telemetry. Will treat elevated heart rate if present as needed. -Continue with Xarelto 20 mg daily for anticoagulation. -Will consult cardiology. #2. Hypertension: -Will restart lisinopril 40 mg daily. #3. Diabetes mellitus type 2: -Resume metformin 1000 mg daily and Glimepiride 1 mg daily. -Check blood sugars 3 times a day and with meals. <Celso Fisher - Last Filed: 12/06/16 14:12> Exam - Vital Signs Vital Signs: Last Vital Signs Temp 36.6 C 12/06/16 04:00 Pulse 123 H 12/06/16 09:59 Resp 20 12/06/16 04:00 BP 100/62 12/06/16 09:59 Pulse Ox 93 L 12/06/16 04:00 Orthostatic Blood Pressure [ 150/121 Standing] Orthostatic Blood Pressure [ 75/52 Sitting] Orthostatic Blood Pressure [ 85/57 Supine] - Patient Data Lab Results last 24 hrs: Laboratory Results - last 24 hr 12/05/16 12/06/16 12/06/16 Range/Units 17:09 04:11 04:11 WBC 3.03 L (4.0-11.0) K/uL RBC 3.52 L (4.50-5.90) M/uL Hgb 10.8 L (13.0-17.0) g/dL Hct 32.2 L (38.0-50.0) % MCV 91.5 (80.0-98.0) fL MCH 30.7 (27.0-32.0) pg MCHC 33.5 (31.0-37.0) g/dL RDW Std Deviation 51.6 (28.0-62.0) fl RDW Coeff of Kevin 16 H (11.0-15.0) % Plt Count 237 (150-400) K/uL MPV 9.50 (7.40-12.00) fL Neut % (Auto) 82.6 H (48.0-80.0) % Lymph % (Auto) 9.2 L (16.0-40.0) % Wilcox % (Auto) 7.6 (0.0-15.0) % Eos % (Auto) 0.3 (0.0-7.0) % Baso % (Auto) 0.3 (0.0-1.5) % Neut # (Auto) 2.5 (1.4-5.7) K/uL Lymph # (Auto) 0.3 L (0.6-2.4) K/uL Wilcox # (Auto) 0.2 (0.0-0.8) K/uL Eos # (Auto) 0.0 (0.0-0.7) K/uL Baso # (Auto) 0.0 (0.0-0.1) K/uL Nucleated RBC % 0.0 /100WBC Nucleated RBCs # 0 K/uL Sodium 137 (136-146) mmol/L Potassium 4.3 (3.5-5.1) mmol/L Chloride 105 (98-110) mmol/L Carbon Dioxide 21 (21-31) mmol/L BUN 16 (6.0-23.0) mg/dL Creatinine 0.8 (0.6-1.5) mg/dL Est Cr Clr Drug Dosing 98.47 mL/min Estimated GFR (MDRD) > 60.0 ml/min Glucose 161 H (60-110) mg/dL POC Glucose 149 H (60-110) mg/dL Calcium 7.7 L (8.8-10.8) mg/dL Magnesium 1.8 (1.5-2.3) mEq/L 12/06/16 12/06/16 Range/Units 06:31 12:02 WBC (4.0-11.0) K/uL RBC (4.50-5.90) M/uL Hgb (13.0-17.0) g/dL Hct (38.0-50.0) % MCV (80.0-98.0) fL MCH (27.0-32.0) pg MCHC (31.0-37.0) g/dL RDW Std Deviation (28.0-62.0) fl RDW Coeff of Kevin (11.0-15.0) % Plt Count (150-400) K/uL MPV (7.40-12.00) fL Neut % (Auto) (48.0-80.0) % Lymph % (Auto) (16.0-40.0) % Wilcox % (Auto) (0.0-15.0) % Eos % (Auto) (0.0-7.0) % Baso % (Auto) (0.0-1.5) % Neut # (Auto) (1.4-5.7) K/uL Lymph # (Auto) (0.6-2.4) K/uL Wilcox # (Auto) (0.0-0.8) K/uL Eos # (Auto) (0.0-0.7) K/uL Baso # (Auto) (0.0-0.1) K/uL Nucleated RBC % /100WBC Nucleated RBCs # K/uL Sodium (136-146) mmol/L Potassium (3.5-5.1) mmol/L Chloride (98-110) mmol/L Carbon Dioxide (21-31) mmol/L BUN (6.0-23.0) mg/dL Creatinine (0.6-1.5) mg/dL Est Cr Clr Drug Dosing mL/min Estimated GFR (MDRD) ml/min Glucose (60-110) mg/dL POC Glucose 127 H 197 H (60-110) mg/dL Calcium (8.8-10.8) mg/dL Magnesium (1.5-2.3) mEq/L Result Diagrams: 12/06/16 04:11 12/06/16 04:11 *Q Meaningful Use (ADM) - VTE *Q VTE Criteria *Q: - Stroke *Q Stroke Criteria *Q: - AMI *Q AMI Criteria *Q: Orders Last 24hrs: Active Orders 24 hr Category Date Time Status Patient Status [ADT] Routine ADT 12/05/16 15:05 Active Antiembolic Devices [RC] PER UNIT ROUTINE Care 12/05/16 15:08 Active Blood Glucose Check, Bedside [RC] TIDAC Care 12/05/16 15:49 Active Height and Weight [RC] DAILY Care 12/05/16 15:05 Active Intake and Output [RC] QSHIFT Care 12/05/16 15:07 Active Notify Provider Consults [RC] ASDIRECTED Care 12/05/16 17:14 Active Notify Provider Vital Signs [RC] ASDIRECTED Care 12/05/16 15:07 Active Orthostatic Vital Signs [RC] ASDIRECTED Care 12/05/16 18:32 Active Oxygen Therapy [RC] PRN Care 12/05/16 15:05 Active Pulse Oximetry [RC] PRN Care 12/05/16 15:07 Active RT Aerosol Therapy [RC] ASDIRECTED Care 12/05/16 15:08 Active Telemetry Monitoring [Cardiac Monitoring] [RC] Q8H Care 12/05/16 12:57 Active Up With Assistance [RC] ASDIRECTED Care 12/05/16 15:05 Active VTE/DVT Education [RC] PER UNIT ROUTINE Care 12/05/16 15:05 Active Vital Signs [RC] Q4H Care 12/05/16 15:05 Active Consult to Physical Therapy [PT Evaluation and Cons 12/06/16 09:27 Active Treatment] [CONS] Routine Consult to Physician [CONS] Routine Cons 12/05/16 17:14 Active Heart Healthy Diet [DIET] Diet 12/05/16 Dinner Active Echo Comp wo Cont [US] Routine Exams 12/06/16 08:00 Ordered MAGNESIUM [CHEM] AM Lab 12/07/16 05:11 Ordered MAGNESIUM [CHEM] AM Lab 12/08/16 05:11 Ordered Acetaminophen [Tylenol] Med 12/05/16 15:05 Active 650 mg PO Q4H PRN Albuterol [Proventil Neb Soln] Med 12/05/16 15:05 Active 2.5 mg NEB Q4HRRT PRN Diltiazem [Cardizem CD] Med 12/06/16 09:30 Active 120 mg PO DAILY Dutasteride [Avodart] Med 12/05/16 21:00 Active 0.5 mg PO BEDTIME Glimepiride Med 12/06/16 08:00 Active 1 mg PO WITHBREAKFAST Metoprolol Succinate [Toprol XL] Med 12/05/16 21:00 Active 50 mg PO BEDTIME Ondansetron [Zofran ODT] Med 12/05/16 15:05 Active 4 mg PO Q4H PRN Rivaroxaban [Xarelto] Med 12/07/16 17:30 Active 20 mg PO WITHDINNER Simvastatin [Zocor] Med 12/05/16 21:00 Active 20 mg PO BEDTIME Tamsulosin [Flomax] Med 12/05/16 21:00 Active 0.4 mg PO BEDTIME metFORMIN [Glucophage XR] Med 12/05/16 21:00 Active 1,000 mg PO BEDTIME predniSONE Med 12/05/16 18:15 Active 10 mg PO BIDMEALS Sequential Compression Device [OM.PC] Per Unit Routine Oth 12/05/16 15:07 Ordered Resuscitation Status Routine Resus Stat 12/05/16 15:05 Ordered Medication Orders Acetaminophen (Tylenol) 650 mg PO Q4H PRN PRN Reason: Pain (Mild 1-3)/fever Albuterol (Proventil Neb Soln) 2.5 mg NEB Q4HRRT PRN PRN Reason: Shortness Of Breath/wheezing Diltiazem HCl (Cardizem Cd) 120 mg PO DAILY [facility] Last Admin: 12/06/16 09:59 Dose: 120 mg Dutasteride (Avodart) 0.5 mg PO BEDTIME [facility] Last Admin: 12/05/16 21:15 Dose: 0.5 mg Glimepiride (Glimepiride) 1 mg PO WITHBREAKFAST [facility] Last Admin: 12/06/16 07:56 Dose: 1 mg Metformin HCl (Glucophage Xr) 1,000 mg PO BEDTIME [facility] Last Admin: 12/05/16 21:15 Dose: 1,000 mg Metoprolol Succinate (Toprol Xl) 50 mg PO BEDTIME [facility] Last Admin: 12/05/16 21:15 Dose: 50 mg Ondansetron HCl (Zofran Odt) 4 mg PO Q4H PRN PRN Reason: nausea, able to take PO Prednisone (Prednisone) 10 mg PO BIDMEALS [facility] Last Admin: 12/06/16 07:57 Dose: 10 mg Admin: 12/05/16 18:16 Dose: 10 mg Rivaroxaban (Xarelto) 20 mg PO WITHDINNER [facility] Simvastatin (Zocor) 20 mg PO BEDTIME [facility] Last Admin: 12/05/16 21:15 Dose: 20 mg Tamsulosin HCl (Flomax) 0.4 mg PO BEDTIME [facility] Last Admin: 12/05/16 21:15 Dose: 0.4 mg Assessment/Plan Comment:: i was present with the resident during the history and exam I discussed the case with the resident and agree with the findings and plan as documented in the residents note Celso Crandall
[2016-12-05] MEDS ORDERED: Magnesium Sulfate/Water 4 GM in Premix Bag 1 BAG IV ONE (15:44)
[2016-12-05] MEDS ORDERED: Rivaroxaban 10 MG Tab PO SCH (17:00)
[2016-12-05] MEDS ORDERED: Rivaroxaban 15 MG Tab PO SCH (17:00)
[2016-12-05] MEDS: predniSONE 20 MG Tab PO SCH (18:16)
[2016-12-05] MEDS: Rivaroxaban 15 MG Tab PO SCH (18:17)
[2016-12-05] MEDS ORDERED: Magnesium Sulfate/Water 2 GM in Premix Bag 1 BAG IV ONE (20:18)
[2016-12-05] MEDS ORDERED: predniSONE 20 MG Tab PO SCH (21:00)
[2016-12-05] MEDS ORDERED: Metoprolol Succinate 50 MG Tab.ER PO SCH (21:00)
[2016-12-05] MEDS: metFORMIN 500 MG Tab.ER PO SCH (21:15)
[2016-12-05] MEDS: Tamsulosin 0.4 MG Cap.ER PO SCH (21:15)
[2016-12-05] MEDS: Dutasteride 0.5 MG Cap PO SCH (21:15)
[2016-12-05] MEDS: Simvastatin 20 MG Tab PO SCH (21:15)
[2016-12-06 05:08] LABS: CHLORIDE,CL 105 mmol/L (98-110); SODIUM,NA 137 mmol/L (136-146)
[2016-12-06] MEDS: Rivaroxaban 15 MG Tab PO SCH (07:56)
[2016-12-06] MEDS: predniSONE 20 MG Tab PO SCH ×2 (07:57→16:04)
[2016-12-06] MEDS ORDERED: Magnesium Sulfate/Water 2 GM in Premix Bag 1 BAG IV ONE (09:27)
[2016-12-06] MEDS ORDERED: Diltiazem 120 MG Cap.CD PO SCH (09:30)
[2016-12-06] MEDS ORDERED: Metoprolol Tartrate 50 MG Tab PO ONE (15:47)
[2016-12-06] MEDS ORDERED: Metoprolol Succinate 50 MG Tab.ER PO ONE (16:00)
--- NOTE | 2016-12-06 16:18 | PCM.PN ---
<Dennis Daley - Last Filed: 12/06/16 16:48> - General Info Date of Service: 12/06/16 Admission Dx/Problem (Free Text): Atrial fibrillation with RVR, near syncope Subjective Update: Patient is doing well and denies any chest pain this morning. He notes that he does get dizzy when he gets up to use to ambulate. He denies any nausea, vomiting, constipation, diarrhea, shortness of breath or wheezing. Functional Status: Reports: pain controlled, tolerating diet, ambulating, urinating - Review of Systems General: Reports: No Symptoms HEENT: Reports: no symptoms Pulmonary: Reports: no symptoms Cardiovascular: Reports: No Symptoms Gastrointestinal: Reports: No symptoms Genitourinary: Reports: no symptoms Musculoskeletal: Reports: no symptoms Skin: Reports: no symptoms Neurological: Reports: Dizziness (With ambulation) Psychiatric: Reports: no symptoms - Patient Data Vitals - most recent: Last Vital Signs Temp 98.9 F 12/06/16 12:00 Pulse 155 H 12/06/16 16:04 Resp 16 12/06/16 12:00 BP 90/70 12/06/16 16:04 Pulse Ox 92 L 12/06/16 15:07 Orthostatic Blood Pressure [ 150/121 Standing] Orthostatic Blood Pressure [ 75/52 Sitting] Orthostatic Blood Pressure [ 85/57 Supine] Weight - most recent: 84.1 kg I&O - last 24 hours: Intake & Output 12/06/16 12/06/16 12/06/16 06:59 14:59 22:59 Intake Total 250 Output Total 800 Balance -550 Lab Results last 24 hrs: Laboratory Results - last 24 hr 12/05/16 12/06/16 12/06/16 Range/Units 17:09 04:11 04:11 WBC 3.03 L (4.0-11.0) K/uL RBC 3.52 L (4.50-5.90) M/uL Hgb 10.8 L (13.0-17.0) g/dL Hct 32.2 L (38.0-50.0) % MCV 91.5 (80.0-98.0) fL MCH 30.7 (27.0-32.0) pg MCHC 33.5 (31.0-37.0) g/dL RDW Std Deviation 51.6 (28.0-62.0) fl RDW Coeff of Kevin 16 H (11.0-15.0) % Plt Count 237 (150-400) K/uL MPV 9.50 (7.40-12.00) fL Neut % (Auto) 82.6 H (48.0-80.0) % Lymph % (Auto) 9.2 L (16.0-40.0) % Barton % (Auto) 7.6 (0.0-15.0) % Eos % (Auto) 0.3 (0.0-7.0) % Baso % (Auto) 0.3 (0.0-1.5) % Neut # (Auto) 2.5 (1.4-5.7) K/uL Lymph # (Auto) 0.3 L (0.6-2.4) K/uL Barton # (Auto) 0.2 (0.0-0.8) K/uL Eos # (Auto) 0.0 (0.0-0.7) K/uL Baso # (Auto) 0.0 (0.0-0.1) K/uL Nucleated RBC % 0.0 /100WBC Nucleated RBCs # 0 K/uL Sodium 137 (136-146) mmol/L Potassium 4.3 (3.5-5.1) mmol/L Chloride 105 (98-110) mmol/L Carbon Dioxide 21 (21-31) mmol/L BUN 16 (6.0-23.0) mg/dL Creatinine 0.8 (0.6-1.5) mg/dL Est Cr Clr Drug Dosing 98.47 mL/min Estimated GFR (MDRD) > 60.0 ml/min Glucose 161 H (60-110) mg/dL POC Glucose 149 H (60-110) mg/dL Calcium 7.7 L (8.8-10.8) mg/dL Magnesium 1.8 (1.5-2.3) mEq/L 12/06/16 12/06/16 Range/Units 06:31 12:02 WBC (4.0-11.0) K/uL RBC (4.50-5.90) M/uL Hgb (13.0-17.0) g/dL Hct (38.0-50.0) % MCV (80.0-98.0) fL MCH (27.0-32.0) pg MCHC (31.0-37.0) g/dL RDW Std Deviation (28.0-62.0) fl RDW Coeff of Kevin (11.0-15.0) % Plt Count (150-400) K/uL MPV (7.40-12.00) fL Neut % (Auto) (48.0-80.0) % Lymph % (Auto) (16.0-40.0) % Barton % (Auto) (0.0-15.0) % Eos % (Auto) (0.0-7.0) % Baso % (Auto) (0.0-1.5) % Neut # (Auto) (1.4-5.7) K/uL Lymph # (Auto) (0.6-2.4) K/uL Barton # (Auto) (0.0-0.8) K/uL Eos # (Auto) (0.0-0.7) K/uL Baso # (Auto) (0.0-0.1) K/uL Nucleated RBC % /100WBC Nucleated RBCs # K/uL Sodium (136-146) mmol/L Potassium (3.5-5.1) mmol/L Chloride (98-110) mmol/L Carbon Dioxide (21-31) mmol/L BUN (6.0-23.0) mg/dL Creatinine (0.6-1.5) mg/dL Est Cr Clr Drug Dosing mL/min Estimated GFR (MDRD) ml/min Glucose (60-110) mg/dL POC Glucose 127 H 197 H (60-110) mg/dL Calcium (8.8-10.8) mg/dL Magnesium (1.5-2.3) mEq/L Med Orders - Current: Current Medications Acetaminophen (Tylenol) 650 mg PO Q4H PRN PRN Reason: Pain (Mild 1-3)/fever Albuterol (Proventil Neb Soln) 2.5 mg NEB Q4HRRT PRN PRN Reason: Shortness Of Breath/wheezing Diltiazem HCl (Cardizem Cd) 120 mg PO DAILY [facility] Last Admin: 12/06/16 09:59 Dose: 120 mg Dutasteride (Avodart) 0.5 mg PO BEDTIME [facility] Last Admin: 12/05/16 21:15 Dose: 0.5 mg Insulin Aspart (Novolog) 0 unit SUBCUT TIDAC IESHA PRN Reason: Protocol Metformin HCl (Glucophage Xr) 1,000 mg PO BEDTIME [facility] Last Admin: 12/05/16 21:15 Dose: 1,000 mg Metoprolol Succinate (Toprol Xl) 50 mg PO BEDTIME [facility] Last Admin: 12/05/16 21:15 Dose: 50 mg Ondansetron HCl (Zofran Odt) 4 mg PO Q4H PRN PRN Reason: nausea, able to take PO Prednisone (Prednisone) 10 mg PO BIDMEALS [facility] Last Admin: 12/06/16 16:04 Dose: 10 mg Rivaroxaban (Xarelto) 20 mg PO WITHDINNER [facility] Simvastatin (Zocor) 20 mg PO BEDTIME [facility] Last Admin: 12/05/16 21:15 Dose: 20 mg Tamsulosin HCl (Flomax) 0.4 mg PO BEDTIME [facility] Last Admin: 12/05/16 21:15 Dose: 0.4 mg Discontinued Medications Diltiazem HCl (Diltiazem) 20 mg IVPUSH ONETIME ONE Stop: 12/05/16 12:26 Last Admin: 12/05/16 12:43 Dose: 20 mg Glimepiride (Glimepiride) 1 mg PO WITHBREAKFAST [facility] Last Admin: 12/06/16 07:56 Dose: 1 mg Diltiazem HCl 100 mg/ Sodium (Chloride) 100 mls @ 5 mls/hr IV TITRATE IESHA; 5 MG /HR PRN Reason: Protocol Last Admin: 12/05/16 12:43 Dose: 5 mg/hr, 5 mls/hr Sodium Chloride (Normal Saline) 1,000 mls @ 999 mls/hr IV .Bolus ONE Stop: 12/05/16 14:13 Last Admin: 12/05/16 13:14 Dose: 999 mls/hr Magnesium Sulfate 4 gm/ Premix 100 mls @ 50 mls/hr IV ONETIME ONE Stop: 12/05/16 17:43 Last Admin: 12/05/16 16:06 Dose: 50 mls/hr Magnesium Sulfate 2 gm/ Premix 50 mls @ 25 mls/hr IV ONETIME ONE Stop: 12/06/16 11:26 Last Admin: 12/06/16 10:04 Dose: 25 mls/hr Metoprolol Succinate (Toprol Xl) 50 mg PO ONETIME ONE Stop: 12/06/16 16:01 Last Admin: 12/06/16 16:04 Dose: 50 mg Metoprolol Tartrate (Lopressor) 50 mg PO ONETIME ONE Stop: 12/06/16 15:48 Last Admin: 12/06/16 15:57 Dose: Not Given Prednisone (Prednisone) 10 mg PO BID IES[facility] Rivaroxaban (Xarelto) 20 mg PO ACDINNER [facility] Rivaroxaban (Xarelto) 15 mg PO BIDMEALS [facility] Last Admin: 12/05/16 19:58 Dose: Not Given Rivaroxaban (Xarelto) 15 mg PO BIDMEALS [facility] Last Admin: 12/06/16 07:56 Dose: 15 mg - Exam Quality Assessment: DVT prophylaxis (scd's) General: alert, oriented, cooperative, no acute distress Lungs: Clear to auscultation, Normal respiratory effort Cardiovascular: Regular Rate, Regular Rhythm Abdomen: bowel sounds present, soft, no tenderness, no distension Extremities: no edema, no calf tenderness Peripheral Pulses: 2+: radial (L), radial (R) Skin: warm, dry, intact Neurological: no new focal deficit Psy/Mental Status: alert, normal affect, normal mood - Problem List & Annotations (1) Atrial fibrillation with rapid ventricular response SNOMED Code(s): 299474160909680 Code(s): I48.91 - UNSPECIFIED ATRIAL FIBRILLATION Status: Acute Current Visit: Yes (2) Near syncope SNOMED Code(s): 494905480 Code(s): R55 - SYNCOPE AND COLLAPSE Status: Acute Current Visit: Yes - Problem List Review Problem List Initiated/Reviewed/Updated: Yes - My Orders Last 24 Hours: My Active Orders 12/05/16 15:49 Blood Glucose Check, Bedside [RC] TIDAC 12/05/16 17:14 Notify Provider Consults [RC] ASDIRECTED Consult to Physician [CONS] Routine 12/05/16 18:15 predniSONE 10 mg PO BIDMEALS 12/05/16 21:00 Dutasteride [Avodart] 0.5 mg PO BEDTIME Metoprolol Succinate [Toprol XL] 50 mg PO BEDTIME Simvastatin [Zocor] 20 mg PO BEDTIME Tamsulosin [Flomax] 0.4 mg PO BEDTIME metFORMIN [Glucophage XR] 1,000 mg PO BEDTIME 12/05/16 Dinner Heart Healthy Diet [DIET] 12/06/16 09:27 Consult to Physical Therapy [PT Evaluation and Treatment] [CONS] Routine 12/06/16 09:30 Diltiazem [Cardizem CD] 120 mg PO DAILY 12/06/16 17:00 Insulin Aspart [NovoLOG] See Protocol SUBCUT TIDAC 12/07/16 05:11 MAGNESIUM [CHEM] AM 12/07/16 17:30 Rivaroxaban [Xarelto] 20 mg PO WITHDINNER 12/08/16 05:11 MAGNESIUM [CHEM] AM - Plan Plan:: 71-year-old male admitted with atrial fibrillation with RVR and a near syncopal episode. #1. Atrial fibrillation with RVR: -Patient will continue on his home medication metoprolol succinate [address] Ortiz from cardiology ordered a one time dose of metoprolol 50 mg IV. I do appreciate Dr. Crandall help and further recommendations with the patient. -Patient on telemetry. Heart rate has been adequately controlled when the patient is at rest. Patient was working with physical therapy today, telemetry noted that the patient's heart rate increased to the 180s with ambulation. Patient was asymptomatic with this elevated heart rate. -Continue with Xarelto 20 mg daily for anticoagulation. -Echocardiogram is pending. -Patient's magnesium was 1.8. He was given 2 g of IV magnesium. #2. Hypertension: -Continue lisinopril 40 mg daily. Blood pressure is well-controlled. #3. Diabetes mellitus type 2: -Continue metformin 1000 mg daily. Glimepiride is currently being held. patient started on NovoLog sliding scale. -Check blood sugars 3 times a day and with meals. #4. Dizziness and lightheadedness: -Patient was assessed by physical therapy. They have signed off stating that the patient does not need further assessment and care. Physical therapy does note that the patient's heart rate became elevated at 180 during physical therapy. Patient was asymptomatic. -Orthostatic vital signs show a blood pressure of 150/121 with standing, 75/52 sitting and 85/57 while supine. <Celso Fisher - Last Filed: 12/07/16 09:38> - Patient Data Vitals - most recent: Last Vital Signs Temp 36.7 C 12/07/16 08:00 Pulse 100 12/07/16 08:00 Resp 20 12/07/16 08:00 BP 92/66 12/07/16 08:00 Pulse Ox 92 L 12/07/16 08:00 Orthostatic Blood Pressure [ 150/121 Standing] Orthostatic Blood Pressure [ 75/52 Sitting] Orthostatic Blood Pressure [ 85/57 Supine] I&O - last 24 hours: Intake & Output 12/06/16 12/07/16 12/07/16 22:59 06:59 14:59 Intake Total 750 Output Total 550 Balance 200 Lab Results last 24 hrs: Laboratory Results - last 24 hr 12/06/16 12/06/16 12/07/16 Range/Units 12:02 17:23 05:12 WBC (4.0-11.0) K/uL RBC (4.50-5.90) M/uL Hgb (13.0-17.0) g/dL Hct (38.0-50.0) % MCV (80.0-98.0) fL MCH (27.0-32.0) pg MCHC (31.0-37.0) g/dL RDW Std Deviation (28.0-62.0) fl RDW Coeff of Kevin (11.0-15.0) % Plt Count (150-400) K/uL MPV (7.40-12.00) fL Neut % (Auto) (48.0-80.0) % Lymph % (Auto) (16.0-40.0) % Barton % (Auto) (0.0-15.0) % Eos % (Auto) (0.0-7.0) % Baso % (Auto) (0.0-1.5) % Neut # (Auto) (1.4-5.7) K/uL Lymph # (Auto) (0.6-2.4) K/uL Barton # (Auto) (0.0-0.8) K/uL Eos # (Auto) (0.0-0.7) K/uL Baso # (Auto) (0.0-0.1) K/uL Nucleated RBC % /100WBC Nucleated RBCs # K/uL Sodium (136-146) mmol/L Potassium (3.5-5.1) mmol/L Chloride (98-110) mmol/L Carbon Dioxide (21-31) mmol/L BUN (6.0-23.0) mg/dL Creatinine (0.6-1.5) mg/dL Est Cr Clr Drug Dosing mL/min Estimated GFR (MDRD) ml/min Glucose (60-110) mg/dL POC Glucose 197 H 192 H (60-110) mg/dL Calcium (8.8-10.8) mg/dL Magnesium 1.8 (1.5-2.3) mEq/L 12/07/16 12/07/16 12/07/16 Range/Units 05:12 05:12 06:48 WBC 3.53 L (4.0-11.0) K/uL RBC 3.74 L (4.50-5.90) M/uL Hgb 11.6 L (13.0-17.0) g/dL Hct 34.7 L (38.0-50.0) % MCV 92.8 (80.0-98.0) fL MCH 31.0 (27.0-32.0) pg MCHC 33.4 (31.0-37.0) g/dL RDW Std Deviation 53.3 (28.0-62.0) fl RDW Coeff of Kevin 16 H (11.0-15.0) % Plt Count 247 (150-400) K/uL MPV 9.70 (7.40-12.00) fL Neut % (Auto) 81.0 H (48.0-80.0) % Lymph % (Auto) 10.8 L (16.0-40.0) % Barton % (Auto) 6.8 (0.0-15.0) % Eos % (Auto) 0.8 (0.0-7.0) % Baso % (Auto) 0.6 (0.0-1.5) % Neut # (Auto) 2.9 (1.4-5.7) K/uL Lymph # (Auto) 0.4 L (0.6-2.4) K/uL Barton # (Auto) 0.2 (0.0-0.8) K/uL Eos # (Auto) 0.0 (0.0-0.7) K/uL Baso # (Auto) 0.0 (0.0-0.1) K/uL Nucleated RBC % 0.8 /100WBC Nucleated RBCs # 0 K/uL Sodium 138 (136-146) mmol/L Potassium 4.2 (3.5-5.1) mmol/L Chloride 106 (98-110) mmol/L Carbon Dioxide 20 L (21-31) mmol/L BUN 16 (6.0-23.0) mg/dL Creatinine 0.9 (0.6-1.5) mg/dL Est Cr Clr Drug Dosing 87.53 mL/min Estimated GFR (MDRD) > 60.0 ml/min Glucose 123 H (60-110) mg/dL POC Glucose 119 H (60-110) mg/dL Calcium 8.3 L (8.8-10.8) mg/dL Magnesium (1.5-2.3) mEq/L Med Orders - Current: Current Medications Acetaminophen (Tylenol) 650 mg PO Q4H PRN PRN Reason: Pain (Mild 1-3)/fever Albuterol (Proventil Neb Soln) 2.5 mg NEB Q4HRRT PRN PRN Reason: Shortness Of Breath/wheezing Dutasteride (Avodart) 0.5 mg PO BEDTIME [facility] Last Admin: 12/06/16 20:44 Dose: 0.5 mg Insulin Aspart (Novolog) 0 unit SUBCUT TIDAC [facility] PRN Reason: Protocol Last Admin: 12/07/16 06:49 Dose: Not Given Metformin HCl (Glucophage Xr) 1,000 mg PO BEDTIME [facility] Last Admin: 12/06/16 20:44 Dose: 1,000 mg Metoprolol Succinate (Toprol Xl) 50 mg PO Q8H [facility] Last Admin: 12/07/16 07:22 Dose: Not Given Ondansetron HCl (Zofran Odt) 4 mg PO Q4H PRN PRN Reason: nausea, able to take PO Prednisone (Prednisone) 10 mg PO BIDMEALS [facility] Last Admin: 12/07/16 07:53 Dose: 10 mg Rivaroxaban (Xarelto) 20 mg PO WITHDINNER [facility] Simvastatin (Zocor) 20 mg PO BEDTIME [facility] Last Admin: 12/06/16 20:43 Dose: 20 mg Tamsulosin HCl (Flomax) 0.4 mg PO BEDTIME [facility] Last Admin: 12/06/16 20:43 Dose: 0.4 mg Discontinued Medications Diltiazem HCl (Diltiazem) 20 mg IVPUSH ONETIME ONE Stop: 12/05/16 12:26 Last Admin: 12/05/16 12:43 Dose: 20 mg Diltiazem HCl (Cardizem Cd) 120 mg PO DAILY [facility] Last Admin: 12/06/16 09:59 Dose: 120 mg Glimepiride (Glimepiride) 1 mg PO WITHBREAKFAST [facility] Last Admin: 12/06/16 07:56 Dose: 1 mg Diltiazem HCl 100 mg/ Sodium (Chloride) 100 mls @ 5 mls/hr IV TITRATE EISHA; 5 MG /HR PRN Reason: Protocol Last Admin: 12/05/16 12:43 Dose: 5 mg/hr, 5 mls/hr Sodium Chloride (Normal Saline) 1,000 mls @ 999 mls/hr IV .Bolus ONE Stop: 12/05/16 14:13 Last Admin: 12/05/16 13:14 Dose: 999 mls/hr Magnesium Sulfate 4 gm/ Premix 100 mls @ 50 mls/hr IV ONETIME ONE Stop: 12/05/16 17:43 Last Admin: 12/05/16 16:06 Dose: 50 mls/hr Magnesium Sulfate 2 gm/ Premix 50 mls @ 25 mls/hr IV ONETIME ONE Stop: 12/06/16 11:26 Last Admin: 12/06/16 10:04 Dose: 25 mls/hr Metoprolol Succinate (Toprol Xl) 50 mg PO BEDTIME [facility] Last Admin: 12/05/16 21:15 Dose: 50 mg Metoprolol Succinate (Toprol Xl) 50 mg PO ONETIME ONE Stop: 12/06/16 16:01 Last Admin: 12/06/16 16:04 Dose: 50 mg Metoprolol Tartrate (Lopressor) 50 mg PO ONETIME ONE Stop: 12/06/16 15:48 Last Admin: 12/06/16 15:57 Dose: Not Given Prednisone (Prednisone) 10 mg PO BID [facility] Rivaroxaban (Xarelto) 20 mg PO ACDINNER [facility] Rivaroxaban (Xarelto) 15 mg PO BIDMEALS [facility] Last Admin: 12/05/16 19:58 Dose: Not Given Rivaroxaban (Xarelto) 15 mg PO BIDMEALS [facility] Last Admin: 12/06/16 07:56 Dose: 15 mg - Assessment Assessment:: I was present with the resident during the history and physical. I discussed the case with the resident and agree with the findings and plan as documented in the resident;s note
[2016-12-06] MEDS: Insulin Aspart 100 Units/ML 3 ML Pen SUBCUT SCH (17:43)
--- NOTE | 2016-12-06 17:45 | PCM.PN ---
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 Subjective Update: Patient feeling okay, he said that he feels some heart racing when he was up and about, and dizziness. No chest pain or shortness of breath his heart rate when he was twisting 70-90 but when he moves around it was around 130 to 140 in A. fib - Review of Systems General: Reports: No Symptoms HEENT: Reports: no symptoms Pulmonary: Reports: no symptoms Cardiovascular: Reports: Palpitations Gastrointestinal: Reports: No symptoms Genitourinary: Reports: no symptoms Musculoskeletal: Reports: no symptoms Skin: Reports: no symptoms Neurological: Reports: Dizziness - Patient Data Vitals - most recent: Last Vital Signs Temp 36.8 C 12/06/16 16:00 Pulse 155 H 12/06/16 16:04 Resp 20 12/06/16 16:00 BP 90/70 12/06/16 16:04 Pulse Ox 93 L 12/06/16 16:00 Orthostatic Blood Pressure [ 150/121 Standing] Orthostatic Blood Pressure [ 75/52 Sitting] Orthostatic Blood Pressure [ 85/57 Supine] Weight - most recent: 84.1 kg I&O - last 24 hours: Intake & Output 12/06/16 12/06/16 12/06/16 06:59 14:59 22:59 Intake Total 250 Output Total 800 Balance -550 Lab Results last 24 hrs: Laboratory Results - last 24 hr 12/05/16 12/06/16 12/06/16 Range/Units 17:09 04:11 04:11 WBC 3.03 L (4.0-11.0) K/uL RBC 3.52 L (4.50-5.90) M/uL Hgb 10.8 L (13.0-17.0) g/dL Hct 32.2 L (38.0-50.0) % MCV 91.5 (80.0-98.0) fL MCH 30.7 (27.0-32.0) pg MCHC 33.5 (31.0-37.0) g/dL RDW Std Deviation 51.6 (28.0-62.0) fl RDW Coeff of Kevin 16 H (11.0-15.0) % Plt Count 237 (150-400) K/uL MPV 9.50 (7.40-12.00) fL Neut % (Auto) 82.6 H (48.0-80.0) % Lymph % (Auto) 9.2 L (16.0-40.0) % Valley % (Auto) 7.6 (0.0-15.0) % Eos % (Auto) 0.3 (0.0-7.0) % Baso % (Auto) 0.3 (0.0-1.5) % Neut # (Auto) 2.5 (1.4-5.7) K/uL Lymph # (Auto) 0.3 L (0.6-2.4) K/uL [place] # (Auto) 0.2 (0.0-0.8) K/uL Eos # (Auto) 0.0 (0.0-0.7) K/uL Baso # (Auto) 0.0 (0.0-0.1) K/uL Nucleated RBC % 0.0 /100WBC Nucleated RBCs # 0 K/uL Sodium 137 (136-146) mmol/L Potassium 4.3 (3.5-5.1) mmol/L Chloride 105 (98-110) mmol/L Carbon Dioxide 21 (21-31) mmol/L BUN 16 (6.0-23.0) mg/dL Creatinine 0.8 (0.6-1.5) mg/dL Est Cr Clr Drug Dosing 98.47 mL/min Estimated GFR (MDRD) > 60.0 ml/min Glucose 161 H (60-110) mg/dL POC Glucose 149 H (60-110) mg/dL Calcium 7.7 L (8.8-10.8) mg/dL Magnesium 1.8 (1.5-2.3) mEq/L 12/06/16 12/06/16 12/06/16 Range/Units 06:31 12:02 17:23 WBC (4.0-11.0) K/uL RBC (4.50-5.90) M/uL Hgb (13.0-17.0) g/dL Hct (38.0-50.0) % MCV (80.0-98.0) fL MCH (27.0-32.0) pg MCHC (31.0-37.0) g/dL RDW Std Deviation (28.0-62.0) fl RDW Coeff of Kevin (11.0-15.0) % Plt Count (150-400) K/uL MPV (7.40-12.00) fL Neut % (Auto) (48.0-80.0) % Lymph % (Auto) (16.0-40.0) % Valley % (Auto) (0.0-15.0) % Eos % (Auto) (0.0-7.0) % Baso % (Auto) (0.0-1.5) % Neut # (Auto) (1.4-5.7) K/uL Lymph # (Auto) (0.6-2.4) K/uL Valley # (Auto) (0.0-0.8) K/uL Eos # (Auto) (0.0-0.7) K/uL Baso # (Auto) (0.0-0.1) K/uL Nucleated RBC % /100WBC Nucleated RBCs # K/uL Sodium (136-146) mmol/L Potassium (3.5-5.1) mmol/L Chloride (98-110) mmol/L Carbon Dioxide (21-31) mmol/L BUN (6.0-23.0) mg/dL Creatinine (0.6-1.5) mg/dL Est Cr Clr Drug Dosing mL/min Estimated GFR (MDRD) ml/min Glucose (60-110) mg/dL POC Glucose 127 H 197 H 192 H (60-110) mg/dL Calcium (8.8-10.8) mg/dL Magnesium (1.5-2.3) mEq/L Med Orders - Current: Current Medications Acetaminophen (Tylenol) 650 mg PO Q4H PRN PRN Reason: Pain (Mild 1-3)/fever Albuterol (Proventil Neb Soln) 2.5 mg NEB Q4HRRT PRN PRN Reason: Shortness Of Breath/wheezing Diltiazem HCl (Cardizem Cd) 120 mg PO DAILY [facility] Last Admin: 12/06/16 09:59 Dose: 120 mg Dutasteride (Avodart) 0.5 mg PO BEDTIME [facility] Last Admin: 12/05/16 21:15 Dose: 0.5 mg Insulin Aspart (Novolog) 0 unit SUBCUT TIDAC [facility] PRN Reason: Protocol Metformin HCl (Glucophage Xr) 1,000 mg PO BEDTIME [facility] Last Admin: 12/05/16 21:15 Dose: 1,000 mg Metoprolol Succinate (Toprol Xl) 50 mg PO BEDTIME [facility] Last Admin: 12/05/16 21:15 Dose: 50 mg Ondansetron HCl (Zofran Odt) 4 mg PO Q4H PRN PRN Reason: nausea, able to take PO Prednisone (Prednisone) 10 mg PO BIDMEALS [facility] Last Admin: 12/06/16 16:04 Dose: 10 mg Rivaroxaban (Xarelto) 20 mg PO WITHDINNER [facility] Simvastatin (Zocor) 20 mg PO BEDTIME [facility] Last Admin: 12/05/16 21:15 Dose: 20 mg Tamsulosin HCl (Flomax) 0.4 mg PO BEDTIME [facility] Last Admin: 12/05/16 21:15 Dose: 0.4 mg Discontinued Medications Diltiazem HCl (Diltiazem) 20 mg IVPUSH ONETIME ONE Stop: 12/05/16 12:26 Last Admin: 12/05/16 12:43 Dose: 20 mg Glimepiride (Glimepiride) 1 mg PO WITHBREAKFAST [facility] Last Admin: 12/06/16 07:56 Dose: 1 mg Diltiazem HCl 100 mg/ Sodium (Chloride) 100 mls @ 5 mls/hr IV TITRATE IESHA; 5 MG /HR PRN Reason: Protocol Last Admin: 12/05/16 12:43 Dose: 5 mg/hr, 5 mls/hr Sodium Chloride (Normal Saline) 1,000 mls @ 999 mls/hr IV .Bolus ONE Stop: 12/05/16 14:13 Last Admin: 12/05/16 13:14 Dose: 999 mls/hr Magnesium Sulfate 4 gm/ Premix 100 mls @ 50 mls/hr IV ONETIME ONE Stop: 12/05/16 17:43 Last Admin: 12/05/16 16:06 Dose: 50 mls/hr Magnesium Sulfate 2 gm/ Premix 50 mls @ 25 mls/hr IV ONETIME ONE Stop: 12/06/16 11:26 Last Admin: 12/06/16 10:04 Dose: 25 mls/hr Metoprolol Succinate (Toprol Xl) 50 mg PO ONETIME ONE Stop: 12/06/16 16:01 Last Admin: 12/06/16 16:04 Dose: 50 mg Metoprolol Tartrate (Lopressor) 50 mg PO ONETIME ONE Stop: 12/06/16 15:48 Last Admin: 12/06/16 15:57 Dose: Not Given Prednisone (Prednisone) 10 mg PO BID [facility] Rivaroxaban (Xarelto) 20 mg PO ACDINNER [facility] Rivaroxaban (Xarelto) 15 mg PO BIDMEALS [facility] Last Admin: 12/05/16 19:58 Dose: Not Given Rivaroxaban (Xarelto) 15 mg PO BIDMEALS [facility] Last Admin: 12/06/16 07:56 Dose: 15 mg - Exam General: alert, oriented HEENT: Pupils equal, Pupils reactive Neck: supple Lungs: Clear to auscultation Cardiovascular: Irregular Rhythm Abdomen: bowel sounds present (Male) Exam: No hernia Back Exam: normal inspection EKG INTERPRETATION Rhythm: a-fib - Problem List Review Problem List Initiated/Reviewed/Updated: Yes - My Orders Last 24 Hours: My Active Orders 12/05/16 18:32 Orthostatic Vital Signs [RC] ASDIRECTED 12/06/16 08:00 Echo Comp wo Cont [US] Routine - Plan Plan:: 71M permanent afib hx of PE with NCMPY EF 38% 01/2017 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 #1. Atrial fibrillation with RVR: Repeated echo showed EF was around 35-40%, would recommend to stay on ACEI and BB, he already got diltiazem and BB, will stop diltiazem, and start metoprolol 50 q8hr tomorrow. -echo pending -continue xarelto #2. Hypertension: -Continue lisinopril 40 mg daily. BP on the low side #3. Diabetes mellitus type 2: -Per hospitalist #4. Dizziness and lightheadedness: - this could be related to Afib RVR, I would order holter 48 hours when he out from the hospital.
[2016-12-06] MEDS: Tamsulosin 0.4 MG Cap.ER PO SCH (20:43)
[2016-12-06] MEDS: Simvastatin 20 MG Tab PO SCH (20:43)
[2016-12-06] MEDS: metFORMIN 500 MG Tab.ER PO SCH (20:44)
[2016-12-06] MEDS: Dutasteride 0.5 MG Cap PO SCH (20:44)
[2016-12-07] MEDS: Insulin Aspart 100 Units/ML 3 ML Pen SUBCUT SCH ×3 (06:49→17:58)
[2016-12-07] MEDS ORDERED: Metoprolol Succinate 25 MG Tab.ER PO SCH (07:00)
[2016-12-07] MEDS: predniSONE 20 MG Tab PO SCH ×2 (07:53→17:59)
[2016-12-07 07:59] LABS: CHLORIDE,CL 106 mmol/L (98-110); SODIUM,NA 138 mmol/L (136-146)
[2016-12-07] MEDS ORDERED: Metoprolol Tartrate 50 MG Tab PO SCH (11:15)
[2016-12-07] MEDS: Lisinopril 5 MG Tab PO SCH (11:28)
--- NOTE | 2016-12-07 16:14 | PCM.PN ---
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 Subjective Update: HR stays in 90-100, with activities 180. Functional Status: Reports: pain controlled - Review of Systems General: Reports: No Symptoms HEENT: Reports: no symptoms Pulmonary: Reports: no symptoms Cardiovascular: Reports: No Symptoms Gastrointestinal: Reports: No symptoms Genitourinary: Reports: no symptoms Musculoskeletal: Reports: no symptoms Neurological: Reports: Dizziness - Patient Data Vitals - most recent: Last Vital Signs Temp 36.6 C 12/07/16 16:00 Pulse 71 12/07/16 16:00 Resp 22 H 12/07/16 16:00 BP 98/79 12/07/16 16:00 Pulse Ox 94 L 12/07/16 16:00 Weight - most recent: 93.1 kg Med Orders - Current: Current Medications Acetaminophen (Tylenol) 650 mg PO Q4H PRN PRN Reason: Pain (Mild 1-3)/fever Albuterol (Proventil Neb Soln) 2.5 mg NEB Q4HRRT PRN PRN Reason: Shortness Of Breath/wheezing Dutasteride (Avodart) 0.5 mg PO BEDTIME [facility] Last Admin: 12/06/16 20:44 Dose: 0.5 mg Insulin Aspart (Novolog) 0 unit SUBCUT TIDAC [facility] PRN Reason: Protocol Last Admin: 12/07/16 11:48 Dose: 1 unit Lisinopril (Prinivil) 5 mg PO DAILY [facility] Last Admin: 12/07/16 11:28 Dose: Not Given Metformin HCl (Glucophage Xr) 1,000 mg PO BEDTIME [facility] Last Admin: 12/06/16 20:44 Dose: 1,000 mg Metoprolol Tartrate (Lopressor) 50 mg PO Q8H [facility] Last Admin: 12/07/16 11:22 Dose: 50 mg Ondansetron HCl (Zofran Odt) 4 mg PO Q4H PRN PRN Reason: nausea, able to take PO Prednisone (Prednisone) 10 mg PO BIDMEALS [facility] Last Admin: 12/07/16 07:53 Dose: 10 mg [facility]aroxaban ([facility]to) [facility] Simvastatin (Zocor) 20 mg PO BEDTIME [facility] Last Admin: 12/06/16 20:43 Dose: 20 mg Tamsulosin HCl (Flomax) 0.4 mg PO BEDTIME [facility] Last Admin: 12/06/16 20:43 Dose: 0.4 mg Discontinued Medications Diltiazem HCl (Diltiazem) 20 mg IVPUSH ONETIME ONE Stop: 12/05/16 12:26 Last Admin: 12/05/16 12:43 Dose: 20 mg Diltiazem HCl (Cardizem Cd) 120 mg PO DAILY [facility] Last Admin: 12/06/16 09:59 Dose: 120 mg Glimepiride (Glimepiride) 1 mg PO WITHBREAKFAST [facility] Last Admin: 12/06/16 07:56 Dose: 1 mg Diltiazem HCl 100 mg/ Sodium (Chloride) 100 mls @ 5 mls/hr IV TITRATE IESHA; 5 MG /HR PRN Reason: Protocol Last Admin: 12/05/16 12:43 Dose: 5 mg/hr, 5 mls/hr Sodium Chloride (Normal Saline) 1,000 mls @ 999 mls/hr IV .Bolus ONE Stop: 12/05/16 14:13 Last Admin: 12/05/16 13:14 Dose: 999 mls/hr Magnesium Sulfate 4 gm/ Premix 100 mls @ 50 mls/hr IV ONETIME ONE Stop: 12/05/16 17:43 Last Admin: 12/05/16 16:06 Dose: 50 mls/hr Magnesium Sulfate 2 gm/ Premix 50 mls @ 25 mls/hr IV ONETIME ONE Stop: 12/06/16 11:26 Last Admin: 12/06/16 10:04 Dose: 25 mls/hr Metoprolol Succinate (Toprol Xl) 50 mg PO BEDTIME [facility] Last Admin: 12/05/16 21:15 Dose: 50 mg Metoprolol Succinate (Toprol Xl) 50 mg PO ONETIME ONE Stop: 12/06/16 16:01 Last Admin: 12/06/16 16:04 Dose: 50 mg Metoprolol Succinate (Toprol Xl) 50 mg PO Q8H [facility] Last Admin: 12/07/16 07:22 Dose: Not Given Metoprolol Tartrate (Lopressor) 50 mg PO ONETIME ONE Stop: 12/06/16 15:48 Last Admin: 12/06/16 15:57 Dose: Not Given Prednisone (Prednisone) 10 mg PO BID [facility] Rivaroxaban (Xarelto) 20 mg PO ACDINNER [facility] Rivaroxaban (Xarelto) 15 mg PO BIDMEALS [facility] Last Admin: 12/05/16 19:58 Dose: Not Given Rivaroxaban (Xarelto) 15 mg PO BIDMEALS [facility] Last Admin: 12/06/16 07:56 Dose: 15 mg - Exam General: alert, oriented HEENT: Pupils equal, Pupils reactive Neck: supple Lungs: Clear to auscultation Cardiovascular: Irregular Rhythm Abdomen: bowel sounds present, soft (Male) Exam: No hernia, Normal inspection Back Exam: normal inspection EKG INTERPRETATION Rhythm: a-fib - Problem List Review Problem List Initiated/Reviewed/Updated: Yes - Plan Plan:: 71M permanent afib hx of PE with NCMPY EF 38% 01/2017 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 #1. Atrial fibrillation with RVR: Repeated echo showed EF was around 35-40%, would recommend to stay on ACEI and BB, will continue metoprolol 50 q8, and it could be q6 tomorrow if HR remained high tonight -continue xarelto #2. Hypertension: -lisinopril was lowered to 20 #3. Diabetes mellitus type 2: -Per hospitalist #4. Dizziness and lightheadedness: - this could be related to Afib RVR, I would order holter 48 hours when he out from the hospital.
--- NOTE | 2016-12-07 16:44 | PCM.PN ---
- General Info Date of Service: 12/07/16 Admission Dx/Problem (Free Text): atrial fibrillation with RVR Subjective Update: Patient continues to have elevated heart rate in the 180s with ambulation. He does become dizzy and lightheaded and unsteady with ambulation. Patient denies any chest pain or shortness of breath with these episodes. When at rest he will be slightly tachycardic at 130 but is asymptomatic. He is tolerating oral intake and voiding appropriately. Functional Status: Reports: pain controlled, tolerating diet, ambulating (With assistance), urinating - Review of Systems General: Reports: No Symptoms HEENT: Reports: no symptoms Pulmonary: Reports: no symptoms Cardiovascular: Reports: No Symptoms Gastrointestinal: Reports: No symptoms Genitourinary: Reports: no symptoms Musculoskeletal: Reports: no symptoms Skin: Reports: no symptoms Neurological: Reports: Dizziness, Gait Disturbance (Secondary to dizziness) Psychiatric: Reports: no symptoms - Patient Data Vitals - most recent: Last Vital Signs Temp 97.8 F 12/07/16 16:00 Pulse 71 12/07/16 16:00 Resp 22 H 12/07/16 16:00 BP 98/79 12/07/16 16:00 Pulse Ox 94 L 12/07/16 16:00 Weight - most recent: 205 lb 4.006 oz I&O - last 24 hours: Intake & Output 12/07/16 12/07/16 12/07/16 06:59 14:59 22:59 Intake Total 1280 Output Total 700 Balance 580 Lab Results last 24 hrs: Laboratory Results - last 24 hr 12/07/16 Range/Units 16:21 POC Glucose 203 H (60-110) mg/dL Med Orders - Current: Current Medications Acetaminophen (Tylenol) 650 mg PO Q4H PRN PRN Reason: Pain (Mild 1-3)/fever Albuterol (Proventil Neb Soln) 2.5 mg NEB Q4HRRT PRN PRN Reason: Shortness Of Breath/wheezing Dutasteride (Avodart) 0.5 mg PO BEDTIME [facility] Last Admin: 12/06/16 20:44 Dose: 0.5 mg Insulin Aspart (Novolog) 0 unit SUBCUT TIDAC [facility] PRN Reason: Protocol Last Admin: 12/07/16 11:48 Dose: 1 unit Lisinopril (Prinivil) 5 mg PO DAILY [facility] Last Admin: 12/07/16 11:28 Dose: Not Given Metformin HCl (Glucophage Xr) 1,000 mg PO BEDTIME [facility] Last Admin: 12/06/16 20:44 Dose: 1,000 mg Metoprolol Tartrate (Lopressor) 50 mg PO Q8H [facility] Last Admin: 12/07/16 11:22 Dose: 50 mg Ondansetron HCl (Zofran Odt) 4 mg PO Q4H PRN PRN Reason: nausea, able to take PO Prednisone (Prednisone) 10 mg PO BIDMEALS [facility] Last Admin: 12/07/16 07:53 Dose: 10 mg Rivaroxaban (Xarelto) 20 mg PO WITHDINNER [facility] Simvastatin (Zocor) 20 mg PO BEDTIME [facility] Last Admin: 12/06/16 20:43 Dose: 20 mg Tamsulosin HCl (Flomax) 0.4 mg PO BEDTIME [facility] Last Admin: 12/06/16 20:43 Dose: 0.4 mg Discontinued Medications Diltiazem HCl (Diltiazem) 20 mg IVPUSH ONETIME ONE Stop: 12/05/16 12:26 Last Admin: 12/05/16 12:43 Dose: 20 mg Diltiazem HCl (Cardizem Cd) 120 mg PO DAILY [facility] Last Admin: 12/06/16 09:59 Dose: 120 mg Glimepiride (Glimepiride) 1 mg PO WITHBREAKFAST [facility] Last Admin: 12/06/16 07:56 Dose: 1 mg Diltiazem HCl 100 mg/ Sodium (Chloride) 100 mls @ 5 mls/hr IV TITRATE IESHA; 5 MG /HR PRN Reason: Protocol Last Admin: 12/05/16 12:43 Dose: 5 mg/hr, 5 mls/hr Sodium Chloride (Normal Saline) 1,000 mls @ 999 mls/hr IV .Bolus ONE Stop: 12/05/16 14:13 Last Admin: 12/05/16 13:14 Dose: 999 mls/hr Magnesium Sulfate 4 gm/ Premix 100 mls @ 50 mls/hr IV ONETIME ONE Stop: 12/05/16 17:43 Last Admin: 12/05/16 16:06 Dose: 50 mls/hr Magnesium Sulfate 2 gm/ Premix 50 mls @ 25 mls/hr IV ONETIME ONE Stop: 12/06/16 11:26 Last Admin: 12/06/16 10:04 Dose: 25 mls/hr Metoprolol Succinate (Toprol Xl) 50 mg PO BEDTIME [facility] Last Admin: 12/05/16 21:15 Dose: 50 mg Metoprolol Succinate (Toprol Xl) 50 mg PO ONETIME ONE Stop: 12/06/16 16:01 Last Admin: 12/06/16 16:04 Dose: 50 mg Metoprolol Succinate (Toprol Xl) 50 mg PO Q8H [facility] Last Admin: 12/07/16 07:22 Dose: Not Given Metoprolol Tartrate (Lopressor) 50 mg PO ONETIME ONE Stop: 12/06/16 15:48 Last Admin: 12/06/16 15:57 Dose: Not Given Prednisone (Prednisone) 10 mg PO BID [facility] Rivaroxaban (Xarelto) 20 mg PO ACDINNER [facility] Rivaroxaban (Xarelto) 15 mg PO BIDMEALS [facility] Last Admin: 12/05/16 19:58 Dose: Not Given Rivaroxaban (Xarelto) 15 mg PO BIDMEALS [facility] Last Admin: 12/06/16 07:56 Dose: 15 mg - Exam Quality Assessment: DVT prophylaxis (scd's) General: alert, oriented, cooperative, no acute distress Lungs: Clear to auscultation, Normal respiratory effort Cardiovascular: Irregular Rhythm, Tachycardia Abdomen: bowel sounds present, soft, no tenderness, no distension Extremities: no edema, no calf tenderness Peripheral Pulses: 2+: radial (L), radial (R) Skin: warm, dry, intact Neurological: no new focal deficit, other (I did not observe the patient ambulating.) Psy/Mental Status: alert, normal affect, normal mood - Problem List & Annotations (1) Atrial fibrillation with rapid ventricular response SNOMED Code(s): 721722169386871 Code(s): I48.91 - UNSPECIFIED ATRIAL FIBRILLATION Status: Acute Current Visit: Yes (2) Near syncope SNOMED Code(s): 700453432 Code(s): R55 - SYNCOPE AND COLLAPSE Status: Acute Current Visit: Yes - Problem List Review Problem List Initiated/Reviewed/Updated: Yes - Assessment Assessment:: I was present with the resident during the history and physical. I discussed the case with the resident and agree with the findings and plan as documented in the resident;s note - Plan Plan:: 71-year-old male admitted with atrial fibrillation with RVR and a near syncopal episode. #1. Atrial fibrillation with RVR: -Continue metoprolol tartrate 50 mg every 8 hours. If heart rate remains elevated, per cardiology, his metoprolol will be increased to every 6 hours. -Patient remained on telemetry. With ambulation heart rate becomes elevated to the 180s. At times he will have a normal heart rate. Was tachycardic at rest today with a rate of 130. -Continue with Xarelto 20 mg daily for anticoagulation. -Echocardiogram shows ejection fraction of 35-40% but the patient was in atrial fibrillation during the study. -Patient's magnesium was 1.8. He was given 2 g of IV magnesium. -Band Splicer would like to do a 48 hour Holter monitor test with the patient as outpatient. #2. Hypertension: -Patient has been hypotensive. Lisinopril decreased to 10 mg daily. #3. Diabetes mellitus type 2: -Continue metformin 1000 mg daily. Glimepiride is currently being held. patient started on NovoLog sliding scale. -Check blood sugars 3 times a day and with meals. Blood sugars have been stable. #4. Dizziness and lightheadedness: -Patient was assessed by physical therapy. They have signed off stating that the patient does not need further assessment and care. -Orthostatic vital signs show a blood pressure of 150/121 with standing, 75/52 sitting and 85/57 while supine. -Dr. Maynard, the patient's primary care provider, came by to see the patient and thinks that the patient may need to be transferred to [place] to be closer to his senior financial reporting analyst. #5. Heart failure with reduced ejection fraction: -Echocardiogram shows ejection fraction of 35-40% but the patient was in atrial fibrillation during the study. -Recommended by cardiology that the patient be on a beta leo and TOMMY inhibitor. He is currently on metoprolol 50 mg every 8 hours and lisinopril 10 mg daily. Lisinopril is being held secondary to the patient's hypotension.
[2016-12-07] MEDS ORDERED: Magnesium Sulfate/Water 2 GM in Premix Bag 1 BAG IV ONE (16:49)
[2016-12-07] MEDS ORDERED: Metoprolol Tartrate 50 MG Tab PO ONE ×2 (17:33→23:00)
[2016-12-07] MEDS: Rivaroxaban 10 MG Tab PO SCH (17:44)
[2016-12-07] MEDS: metFORMIN 500 MG Tab.ER PO SCH (20:37)
[2016-12-07] MEDS: Dutasteride 0.5 MG Cap PO SCH (20:37)
[2016-12-07] MEDS: Simvastatin 20 MG Tab PO SCH (20:38)
[2016-12-07] MEDS: Tamsulosin 0.4 MG Cap.ER PO SCH (20:38)
[2016-12-08 05:39] LABS: CHLORIDE,CL 105 mmol/L (98-110); SODIUM,NA 136 mmol/L (136-146)
[2016-12-08] MEDS ORDERED: Metoprolol Tartrate 50 MG Tab PO SCH ×3 (06:00→18:00)
[2016-12-08] MEDS: predniSONE 20 MG Tab PO SCH ×2 (07:23→17:37)
[2016-12-08] MEDS: Insulin Aspart 100 Units/ML 3 ML Pen SUBCUT SCH ×3 (07:30→17:33)
[2016-12-08] MEDS ORDERED: Digoxin 250 MCG Tab PO SCH (09:00)
[2016-12-08] MEDS: Metoprolol Tartrate 50 MG Tab PO SCH ×2 (09:12→11:31)
[2016-12-08] MEDS: Lisinopril 5 MG Tab PO SCH (09:12)
--- NOTE | 2016-12-08 10:26 | CONS ---
DATE OF CONSULTATION: DATE OF : 1945 PRIMARY CARE PHYSICIAN: Brandon Maynard M.D. REASON FOR CONSULTATION: Atrial fibrillation, RVR, and near syncope. HISTORY OF PRESENT ILLNESS: This is a 71-year-old gentleman with a history of permanent atrial fibrillation, on anticoagulation, as well as hypertension, hyperlipidemia, and also diabetes, history of idiopathic thrombocytopenic purpura, presented to the hospital with near syncope. He had recently started having dizziness from time to time over the past 2 months. He has been active and doing well. He will have a dizziness when he gets up and move, but as soon as he sits down and rest, his dizziness seems to be better. He described feeling dizzy, not the room spinning, but the lightheaded. No chest pain. Sometime he feels heart raising, but not all the time. Never passed out. Never lost consciousness and he talked to the doctor and he stated that he was told that it might be related to his prostate medicine and also related to Lyrica; however, even though he is on the low dose of prostate medications and Lyrica, he is still having the dizziness. On the day of admission, he started having dizziness when he would get up and about and then he almost falling down; however, he did not fall. Recently, he was admitted for 6 days in [facility] for PE. The reason for that because he talked to his cabin cleaner about feeling dizzy and he underwent a CAT scan of the chest that showed PE, that is why he was admitted and Xarelto was started on November 24. Now, he is on 15 twice a day. He denied wheezing, abdominal pain, nausea, vomiting, constipation, diarrhea, orthopnea, or PND. He has seen a drill hand in [facility] regularly, last time was in January. At that time, he was noted to have possible cardiomyopathy; however, he stated that he had a heart catheterization that was normal and he was noted to have atrial fibrillation for long periods of time, probably permanent atrial fibrillation. PAST MEDICAL HISTORY: Including idiopathic thrombocytopenic purpura, hypertension, hypercholesterolemia, diabetes type 2, and permanent atrial fibrillation. REVIEW OF SYSTEMS: Seemed to be negative for 12 point systems except indicated in the HPI. SOCIAL HISTORY: No history of CAD. Never smoker. No drug use. No recreational drug use. PHYSICAL EXAMINATION: VITAL SIGNS: Blood pressure currently 101/68, heart rate 107, O2 saturation 94 on 2 L, and temperature 36.6. HEENT: Mouth pale. No jaundice. No JVDs edema 1+ in his extremities. HEART: Tachycardia, totally irregular. No murmur. LUNGS: Clear. ABDOMEN: Soft, nontender. Bowel sounds present. No hepatosplenomegaly. No edema. ER COURSE: He was given diltiazem IV and currently is on diltiazem IV drip and he will be getting the metoprolol 50 once a day. His home medication including metoprolol 50 mg once a day, lisinopril 40 mg once a day, and simvastatin 20 mg once a day. Chest x-ray with possible vascular congestion; however, his BNP is barely positive. ASSESSMENT AND PLAN: This is a 71-year-old male, history of hypertension, diabetes, dyslipidemia, permanent atrial fibrillation, on anticoagulation for recent diagnosis of pulmonary embolus, near syncope, could be related to rapid ventricular response; however, we are going to continue IV diltiazem drip and probably, we will start him on the p.o. diltiazem tomorrow and continue metoprolol 50 mg once a day, digoxin IV could be considered given that his blood pressure was low normal. I am also going to obtain the medical record from [facility] in [place] as well as [facility] and also going to repeat the echocardiogram and check orthostatic hypotension, vital signs and regarding his pulmonary embolism, I think he should get a cancer screening including colonoscopy. I will follow the patient. Thank you so much for the consultation. DARREL LOPEZ /[id number]
--- NOTE | 2016-12-08 10:59 | PCM.PN ---
<Dennis Daley - Last Filed: 12/08/16 10:54> - General Info Date of Service: 12/08/16 Admission Dx/Problem (Free Text): atrial fibrillation with RVR Subjective Update: Patient continues to have an elevated heart rate with ambulation into the 180- 190s. With this elevated heart rate he at times will feel dizzy and lightheaded and short of breath. When at rest his heart rate is usually less than 100 but at times will increase to 120-130 but the patient is asymptomatic during those elevations. Patient is tolerating oral intake, voiding appropriately and denies any chest pain, palpitations, wheezing, cough, abdominal pain, nausea vomiting, constipation, diarrhea. Functional Status: Reports: pain controlled, tolerating diet, ambulating, urinating - Review of Systems General: Reports: No Symptoms HEENT: Reports: no symptoms Pulmonary: Reports: shortness of breath (Intermittent with exertion) Cardiovascular: Reports: No Symptoms Gastrointestinal: Reports: No symptoms Genitourinary: Reports: no symptoms Musculoskeletal: Reports: no symptoms Skin: Reports: no symptoms Neurological: Reports: Dizziness, Other (Lightheadedness) Psychiatric: Reports: no symptoms - Patient Data Vitals - most recent: Last Vital Signs Temp 97.9 F 12/08/16 08:00 Pulse 102 H 12/08/16 09:12 Resp 16 12/08/16 08:00 BP 91/62 12/08/16 09:12 Pulse Ox 90 L 12/08/16 08:00 Weight - most recent: 83.552 kg I&O - last 24 hours: Intake & Output 12/07/16 12/08/16 12/08/16 22:59 06:59 14:59 Intake Total 1330 1200 Output Total 700 1070 Balance 630 130 Lab Results last 24 hrs: Laboratory Results - last 24 hr 12/07/16 12/08/16 12/08/16 Range/Units 16:21 05:06 05:06 WBC 3.72 L (4.0-11.0) K/uL RBC 3.85 L (4.50-5.90) M/uL Hgb 12.0 L (13.0-17.0) g/dL Hct 35.3 L (38.0-50.0) % MCV 91.7 (80.0-98.0) fL MCH 31.2 (27.0-32.0) pg MCHC 34.0 (31.0-37.0) g/dL RDW Std Deviation 51.9 (28.0-62.0) fl RDW Coeff of Kevin 16 H (11.0-15.0) % Plt Count 221 (150-400) K/uL MPV 9.20 (7.40-12.00) fL Neut % (Auto) 79.0 (48.0-80.0) % Lymph % (Auto) 15.9 L (16.0-40.0) % [place] % (Auto) 4.0 (0.0-15.0) % Eos % (Auto) 0.8 (0.0-7.0) % Baso % (Auto) 0.3 (0.0-1.5) % Neut # (Auto) 2.9 (1.4-5.7) K/uL Lymph # (Auto) 0.6 (0.6-2.4) K/uL [place] # (Auto) 0.2 (0.0-0.8) K/uL Eos # (Auto) 0.0 (0.0-0.7) K/uL Baso # (Auto) 0.0 (0.0-0.1) K/uL Nucleated RBC % 0.0 /100WBC Nucleated RBCs # 0 K/uL Sodium 136 (136-146) mmol/L Potassium 4.7 (3.5-5.1) mmol/L Chloride 105 (98-110) mmol/L Carbon Dioxide 20 L (21-31) mmol/L BUN 16 (6.0-23.0) mg/dL Creatinine 0.9 (0.6-1.5) mg/dL Est Cr Clr Drug Dosing 87.53 mL/min Estimated GFR (MDRD) > 60.0 ml/min Glucose 144 H (60-110) mg/dL POC Glucose 203 H (60-110) mg/dL Calcium 8.5 L (8.8-10.8) mg/dL Magnesium 1.7 (1.5-2.3) mEq/L 12/08/16 Range/Units 06:06 WBC (4.0-11.0) K/uL RBC (4.50-5.90) M/uL Hgb (13.0-17.0) g/dL Hct (38.0-50.0) % MCV (80.0-98.0) fL MCH (27.0-32.0) pg MCHC (31.0-37.0) g/dL RDW Std Deviation (28.0-62.0) fl RDW Coeff of Kevin (11.0-15.0) % Plt Count (150-400) K/uL MPV (7.40-12.00) fL Neut % (Auto) (48.0-80.0) % Lymph % (Auto) (16.0-40.0) % [place] % (Auto) (0.0-15.0) % Eos % (Auto) (0.0-7.0) % Baso % (Auto) (0.0-1.5) % Neut # (Auto) (1.4-5.7) K/uL Lymph # (Auto) (0.6-2.4) K/uL [place] # (Auto) (0.0-0.8) K/uL Eos # (Auto) (0.0-0.7) K/uL Baso # (Auto) (0.0-0.1) K/uL Nucleated RBC % /100WBC Nucleated RBCs # K/uL Sodium (136-146) mmol/L Potassium (3.5-5.1) mmol/L Chloride (98-110) mmol/L Carbon Dioxide (21-31) mmol/L BUN (6.0-23.0) mg/dL Creatinine (0.6-1.5) mg/dL Est Cr Clr Drug Dosing mL/min Estimated GFR (MDRD) ml/min Glucose (60-110) mg/dL POC Glucose 130 H (60-110) mg/dL Calcium (8.8-10.8) mg/dL Magnesium (1.5-2.3) mEq/L Med Orders - Current: Current Medications Acetaminophen (Tylenol) 650 mg PO Q4H PRN PRN Reason: Pain (Mild 1-3)/fever Albuterol (Proventil Neb Soln) 2.5 mg NEB Q4HRRT PRN PRN Reason: Shortness Of Breath/wheezing Digoxin (Lanoxin) 250 mcg PO TID [facility], [facility] Last Admin: 12/08/16 09:12 Dose: 250 mcg Dutasteride (Avodart) 0.5 mg PO BEDTIME [facility], [facility]1983 Last Admin: 12/07/16 20:37 Dose: 0.5 mg Fludrocortisone Acetate (Florinef) 0.05 mg PO DAILY [facility], [facility] Insulin Aspart (Novolog) 0 unit SUBCUT TIDAC [facility], [facility]1983 PRN Reason: Protocol Last Admin: 12/08/16 07:30 Dose: Not Given Lisinopril (Prinivil) 5 mg PO DAILY [facility] Last Admin: 12/08/16 09:12 Dose: Not Given Metformin HCl (Glucophage Xr) 1,000 mg PO BEDTIME [facility], [facility]1983 Last Admin: 12/07/16 20:37 Dose: 1,000 mg Metoprolol Tartrate (Lopressor) 50 mg PO QID [facility], [facility] Last Admin: 12/08/16 09:12 Dose: 50 mg Ondansetron HCl (Zofran Odt) 4 mg PO Q4H PRN PRN Reason: nausea, able to take PO Prednisone (Prednisone) 10 mg PO BIDMEALS [facility], [facility]1983 Last Admin: 12/08/16 07:23 Dose: 10 mg Rivaroxaban (Xarelto) 20 mg PO WITHDINNER [facility], [facility] Last Admin: 12/07/16 17:44 Dose: 20 mg Simvastatin (Zocor) 20 mg PO BEDTIME [facility]1983 Last Admin: 12/07/16 20:38 Dose: 20 mg Tamsulosin HCl (Flomax) 0.4 mg PO BEDTIME [facility] Last Admin: 12/07/16 20:38 Dose: 0.4 mg Discontinued Medications Diltiazem HCl (Diltiazem) 20 mg IVPUSH ONETIME ONE Stop: 12/05/16 12:26 Last Admin: 12/05/16 12:43 Dose: 20 mg Diltiazem HCl (Cardizem Cd) 120 mg PO DAILY [facility] Last Admin: 12/06/16 09:59 Dose: 120 mg Glimepiride (Glimepiride) 1 mg PO WITHBREAKFAST [facility] Last Admin: 12/06/16 07:56 Dose: 1 mg Diltiazem HCl 100 mg/ Sodium (Chloride) 100 mls @ 5 mls/hr IV TITRATE IESHA; 5 MG /HR PRN Reason: Protocol Last Admin: 12/05/16 12:43 Dose: 5 mg/hr, 5 mls/hr Sodium Chloride (Normal Saline) 1,000 mls @ 999 mls/hr IV .Bolus ONE Stop: 12/05/16 14:13 Last Admin: 12/05/16 13:14 Dose: 999 mls/hr Magnesium Sulfate 4 gm/ Premix 100 mls @ 50 mls/hr IV ONETIME ONE Stop: 12/05/16 17:43 Last Admin: 12/05/16 16:06 Dose: 50 mls/hr Magnesium Sulfate 2 gm/ Premix 50 mls @ 25 mls/hr IV ONETIME ONE Stop: 12/06/16 11:26 Last Admin: 12/06/16 10:04 Dose: 25 mls/hr Magnesium Sulfate 2 gm/ Premix 50 mls @ 50 mls/hr IV ONETIME ONE Stop: 12/07/16 17:48 Last Admin: 12/07/16 17:45 Dose: 50 mls/hr Metoprolol Succinate (Toprol Xl) 50 mg PO BEDTIME [facility] Last Admin: 12/05/16 21:15 Dose: 50 mg Metoprolol Succinate (Toprol Xl) 50 mg PO ONETIME ONE Stop: 12/06/16 16:01 Last Admin: 12/06/16 16:04 Dose: 50 mg Metoprolol Succinate (Toprol Xl) 50 mg PO Q8H [facility]1983 Last Admin: 12/07/16 07:22 Dose: Not Given Metoprolol Tartrate (Lopressor) 50 mg PO ONETIME ONE Stop: 12/06/16 15:48 Last Admin: 12/06/16 15:57 Dose: Not Given Metoprolol Tartrate (Lopressor) 50 mg PO Q8H [facility] Last Admin: 12/07/16 11:22 Dose: 50 mg Metoprolol Tartrate (Lopressor) 50 mg PO ONETIME ONE Stop: 12/07/16 17:34 Last Admin: 12/07/16 17:59 Dose: 50 mg Metoprolol Tartrate (Lopressor) 50 mg PO ONETIME ONE Stop: 12/07/16 23:01 Last Admin: 12/07/16 22:03 Dose: 50 mg Metoprolol Tartrate (Lopressor) 50 mg PO TID [facility] Metoprolol Tartrate (Lopressor) 50 mg PO TID [facility]1983 Last Admin: 12/08/16 06:09 Dose: 50 mg Prednisone (Prednisone) 10 mg PO BID [facility] Rivaroxaban (Xarelto) 20 mg PO ACDINNER [facility], [facility]1983 Rivaroxaban (Xarelto) 15 mg PO BIDMEALS [facility]1983 Last Admin: 12/05/16 19:58 Dose: Not Given Rivaroxaban (Xarelto) 15 mg PO BIDMEALS [facility] Last Admin: 12/06/16 07:56 Dose: 15 mg - Exam Quality Assessment: DVT prophylaxis (scd's) General: alert, oriented, cooperative, no acute distress Lungs: Clear to auscultation, Normal respiratory effort Cardiovascular: Regular Rate, Regular Rhythm Abdomen: bowel sounds present, soft, no tenderness, no distension Extremities: no edema, no calf tenderness Peripheral Pulses: 2+: radial (L), radial (R) Skin: warm, dry, intact Neurological: no new focal deficit Psy/Mental Status: alert, normal affect, normal mood - Problem List & Annotations (1) Atrial fibrillation with rapid ventricular response SNOMED Code(s): 953113291133948 Code(s): I48.91 - UNSPECIFIED ATRIAL FIBRILLATION Status: Acute Current Visit: Yes (2) Near syncope SNOMED Code(s): 501295509 Code(s): R55 - SYNCOPE AND COLLAPSE Status: Acute Current Visit: Yes (3) Orthostatic hypotension SNOMED Code(s): 24359840 Code(s): I95.1 - ORTHOSTATIC HYPOTENSION Status: Acute Current Visit: Yes - Problem List Review Problem List Initiated/Reviewed/Updated: Yes - My Orders Last 24 Hours: My Active Orders 12/08/16 09:00 Digoxin [Lanoxin] 250 mcg PO TID 12/08/16 11:00 Fludrocortisone [Florinef] 0.05 mg PO DAILY 12/09/16 05:11 BASIC METABOLIC PANEL,BMP [CHEM] AM CBC WITH AUTO DIFF [HEME] AM - Assessment Assessment:: I was present with the resident during the history and physical. I discussed the case with the resident and agree with the findings and plan as documented in the resident;s note - Plan Plan:: 71-year-old male admitted with atrial fibrillation with RVR and a near syncopal episode. #1. Atrial fibrillation with RVR: -Short acting metoprolol changed to 50 mg every 8 hours per cardiology. -Patient remains on telemetry. With ambulation heart rate becomes elevated to the 180s. At times he will have a normal heart rate. Was tachycardic at rest today with a rate of 130. -Continue with Xarelto 20 mg daily for anticoagulation. -Echocardiogram shows ejection fraction of 35-40% but the patient was in atrial fibrillation during the study. -Patient's magnesium was 1.7. He will be given 2 g of magnesium IV. -Soft Sugar Operator Head would like to do a 48 hour Holter monitor test with the patient as outpatient. -Patient started on digoxin 250 mg 3 times a day and will be started on 250 mg daily tomorrow. #2. Hypertension: -Patient has been hypotensive. Lisinopril decreased to 5 mg daily. Is currently being held secondary to hypotension. #3. Diabetes mellitus type 2: -Continue metformin 1000 mg daily. Glimepiride is currently being held. patient started on NovoLog sliding scale. -Check blood sugars 3 times a day and with meals. Blood sugars have been stable. #4. Dizziness and lightheadedness: -Patient was assessed by physical therapy. They have signed off stating that the patient does not need further assessment and care. -Orthostatic vital signs show a blood pressure of 150/121 with standing, 75/52 sitting and 85/57 while supine. -Patient will be started on Florinef 0.05 mg daily to see if this can help increase his blood pressure. #5. Heart failure with reduced ejection fraction: -Echocardiogram shows ejection fraction of 35-40% but the patient was in atrial fibrillation during the study. -Recommended by cardiology that the patient be on a beta leo and TOMMY inhibitor. He is currently on metoprolol 50 mg every 6 hours and lisinopril 5 mg daily. Lisinopril is being held secondary to the patient's hypotension. <Celso Fisher O - Last Filed: 12/08/16 11:03> - Patient Data Vitals - most recent: Last Vital Signs Temp 36.6 C 12/08/16 08:00 Pulse 102 H 12/08/16 09:12 Resp 16 12/08/16 08:00 BP 91/62 12/08/16 09:12 Pulse Ox 90 L 12/08/16 08:00 I&O - last 24 hours: Intake & Output 12/07/16 12/08/16 12/08/16 22:59 06:59 14:59 Intake Total 1330 1200 Output Total 700 1070 Balance 630 130 Lab Results last 24 hrs: Laboratory Results - last 24 hr 12/07/16 12/08/16 12/08/16 Range/Units 16:21 05:06 05:06 WBC 3.72 L (4.0-11.0) K/uL RBC 3.85 L (4.50-5.90) M/uL Hgb 12.0 L (13.0-17.0) g/dL Hct 35.3 L (38.0-50.0) % MCV 91.7 (80.0-98.0) fL MCH 31.2 (27.0-32.0) pg MCHC 34.0 (31.0-37.0) g/dL RDW Std Deviation 51.9 (28.0-62.0) fl RDW Coeff of Kevin 16 H (11.0-15.0) % Plt Count 221 (150-400) K/uL MPV 9.20 (7.40-12.00) fL Neut % (Auto) 79.0 (48.0-80.0) % Lymph % (Auto) 15.9 L (16.0-40.0) % [place] % (Auto) 4.0 (0.0-15.0) % Eos % (Auto) 0.8 (0.0-7.0) % Baso % (Auto) 0.3 (0.0-1.5) % Neut # (Auto) 2.9 (1.4-5.7) K/uL Lymph # (Auto) 0.6 (0.6-2.4) K/uL [place] # (Auto) 0.2 (0.0-0.8) K/uL Eos # (Auto) 0.0 (0.0-0.7) K/uL Baso # (Auto) 0.0 (0.0-0.1) K/uL Nucleated RBC % 0.0 /100WBC Nucleated RBCs # 0 K/uL Sodium 136 (136-146) mmol/L Potassium 4.7 (3.5-5.1) mmol/L Chloride 105 (98-110) mmol/L Carbon Dioxide 20 L (21-31) mmol/L BUN 16 (6.0-23.0) mg/dL Creatinine 0.9 (0.6-1.5) mg/dL Est Cr Clr Drug Dosing 87.53 mL/min Estimated GFR (MDRD) > 60.0 ml/min Glucose 144 H (60-110) mg/dL POC Glucose 203 H (60-110) mg/dL Calcium 8.5 L (8.8-10.8) mg/dL Magnesium 1.7 (1.5-2.3) mEq/L 12/08/16 Range/Units 06:06 WBC (4.0-11.0) K/uL RBC (4.50-5.90) M/uL Hgb (13.0-17.0) g/dL Hct (38.0-50.0) % MCV (80.0-98.0) fL MCH (27.0-32.0) pg MCHC (31.0-37.0) g/dL RDW Std Deviation (28.0-62.0) fl RDW Coeff of Kevin (11.0-15.0) % Plt Count (150-400) K/uL MPV (7.40-12.00) fL Neut % (Auto) (48.0-80.0) % Lymph % (Auto) (16.0-40.0) % [place] % (Auto) (0.0-15.0) % Eos % (Auto) (0.0-7.0) % Baso % (Auto) (0.0-1.5) % Neut # (Auto) (1.4-5.7) K/uL Lymph # (Auto) (0.6-2.4) K/uL [place] # (Auto) (0.0-0.8) K/uL Eos # (Auto) (0.0-0.7) K/uL Baso # (Auto) (0.0-0.1) K/uL Nucleated RBC % /100WBC Nucleated RBCs # K/uL Sodium (136-146) mmol/L Potassium (3.5-5.1) mmol/L Chloride (98-110) mmol/L Carbon Dioxide (21-31) mmol/L BUN (6.0-23.0) mg/dL Creatinine (0.6-1.5) mg/dL Est Cr Clr Drug Dosing mL/min Estimated GFR (MDRD) ml/min Glucose (60-110) mg/dL POC Glucose 130 H (60-110) mg/dL Calcium (8.8-10.8) mg/dL Magnesium (1.5-2.3) mEq/L Med Orders - Current: Current Medications Acetaminophen (Tylenol) 650 mg PO Q4H PRN PRN Reason: Pain (Mild 1-3)/fever Albuterol (Proventil Neb Soln) 2.5 mg NEB Q4HRRT PRN PRN Reason: Shortness Of Breath/wheezing Digoxin (Lanoxin) 250 mcg PO TID [facility], [facility] Last Admin: 12/08/16 09:12 Dose: 250 mcg Dutasteride (Avodart) 0.5 mg PO BEDTIME [facility], [facility]1983 Last Admin: 12/07/16 20:37 Dose: 0.5 mg Fludrocortisone Acetate (Florinef) 0.05 mg PO DAILY [facility]1983 Insulin Aspart (Novolog) 0 unit SUBCUT TIDAC [facility]1983 PRN Reason: Protocol Last Admin: 12/08/16 07:30 Dose: Not Given Lisinopril (Prinivil) 5 mg PO DAILY [facility] Last Admin: 12/08/16 09:12 Dose: Not Given Metformin HCl (Glucophage Xr) 1,000 mg PO BEDTIME [facility]1983 Last Admin: 12/07/16 20:37 Dose: 1,000 mg Metoprolol Tartrate (Lopressor) 50 mg PO QID [facility] Last Admin: 12/08/16 09:12 Dose: 50 mg Ondansetron HCl (Zofran Odt) 4 mg PO Q4H PRN PRN Reason: nausea, able to take PO Prednisone (Prednisone) 10 mg PO BIDMEALS [facility], [facility]1983 Last Admin: 12/08/16 07:23 Dose: 10 mg Rivaroxaban (Xarelto) 20 mg PO WITHDINNER [facility]1983 Last Admin: 12/07/16 17:44 Dose: 20 mg Simvastatin (Zocor) 20 mg PO BEDTIME [facility]1983 Last Admin: 12/07/16 20:38 Dose: 20 mg Tamsulosin HCl (Flomax) 0.4 mg PO BEDTIME [facility]1983 Last Admin: 12/07/16 20:38 Dose: 0.4 mg Discontinued Medications Diltiazem HCl (Diltiazem) 20 mg IVPUSH ONETIME ONE Stop: 12/05/16 12:26 Last Admin: 12/05/16 12:43 Dose: 20 mg Diltiazem HCl (Cardizem Cd) 120 mg PO DAILY [facility] Last Admin: 12/06/16 09:59 Dose: 120 mg Glimepiride (Glimepiride) 1 mg PO WITHBREAKFAST [facility]1983 Last Admin: 12/06/16 07:56 Dose: 1 mg Diltiazem HCl 100 mg/ Sodium (Chloride) 100 mls @ 5 mls/hr IV TITRATE IESHA; 5 MG /HR PRN Reason: Protocol Last Admin: 12/05/16 12:43 Dose: 5 mg/hr, 5 mls/hr Sodium Chloride (Normal Saline) 1,000 mls @ 999 mls/hr IV .Bolus ONE Stop: 12/05/16 14:13 Last Admin: 12/05/16 13:14 Dose: 999 mls/hr Magnesium Sulfate 4 gm/ Premix 100 mls @ 50 mls/hr IV ONETIME ONE Stop: 12/05/16 17:43 Last Admin: 12/05/16 16:06 Dose: 50 mls/hr Magnesium Sulfate 2 gm/ Premix 50 mls @ 25 mls/hr IV ONETIME ONE Stop: 12/06/16 11:26 Last Admin: 12/06/16 10:04 Dose: 25 mls/hr Magnesium Sulfate 2 gm/ Premix 50 mls @ 50 mls/hr IV ONETIME ONE Stop: 12/07/16 17:48 Last Admin: 12/07/16 17:45 Dose: 50 mls/hr Metoprolol Succinate (Toprol Xl) 50 mg PO BEDTIME [facility] Last Admin: 12/05/16 21:15 Dose: 50 mg Metoprolol Succinate (Toprol Xl) 50 mg PO ONETIME ONE Stop: 12/06/16 16:01 Last Admin: 12/06/16 16:04 Dose: 50 mg Metoprolol Succinate (Toprol Xl) 50 mg PO Q8H [facility]1983 Last Admin: 12/07/16 07:22 Dose: Not Given Metoprolol Tartrate (Lopressor) 50 mg PO ONETIME ONE Stop: 12/06/16 15:48 Last Admin: 12/06/16 15:57 Dose: Not Given Metoprolol Tartrate (Lopressor) 50 mg PO Q8H [facility] Last Admin: 12/07/16 11:22 Dose: 50 mg Metoprolol Tartrate (Lopressor) 50 mg PO ONETIME ONE Stop: 12/07/16 17:34 Last Admin: 12/07/16 17:59 Dose: 50 mg Metoprolol Tartrate (Lopressor) 50 mg PO ONETIME ONE Stop: 12/07/16 23:01 Last Admin: 12/07/16 22:03 Dose: 50 mg Metoprolol Tartrate (Lopressor) 50 mg PO TID [facility]1983 Metoprolol Tartrate (Lopressor) 50 mg PO TID [facility]1983 Last Admin: 12/08/16 06:09 Dose: 50 mg Prednisone (Prednisone) 10 mg PO BID [facility]1983 Rivaroxaban (Xarelto) 20 mg PO ACDINNER [facility]1983 Rivaroxaban (Xarelto) 15 mg PO BIDMEALS [facility]1983 Last Admin: 12/05/16 19:58 Dose: Not Given Rivaroxaban (Xarelto) 15 mg PO BIDMEALS [facility]1983 Last Admin: 12/06/16 07:56 Dose: 15 mg
[2016-12-08] MEDS: Fludrocortisone 0.1 MG Tab PO SCH (11:28)
[2016-12-08] MEDS ORDERED: Digoxin 500 MCG/2 ML Amp IVPUSH ONE ×3 (11:52→16:00)
[2016-12-08] MEDS ORDERED: Magnesium Sulfate/Water 4 GM in Premix Bag 1 BAG IV ONE (17:32)
[2016-12-08] MEDS: Rivaroxaban 10 MG Tab PO SCH (17:37)
--- NOTE | 2016-12-08 18:44 | ECHO ---
The echocardiogram report can be seen in this patient's EMR in the reports section. MARGARITO
[2016-12-08] MEDS: metFORMIN 500 MG Tab.ER PO SCH (20:12)
[2016-12-08] MEDS: Tamsulosin 0.4 MG Cap.ER PO SCH (20:12)
[2016-12-08] MEDS: Simvastatin 20 MG Tab PO SCH (20:12)
[2016-12-08] MEDS: Dutasteride 0.5 MG Cap PO SCH (20:12)
[2016-12-09] MEDS ORDERED: Metoprolol Tartrate 50 MG Tab PO ONE
[2016-12-09 05:38] LABS: CHLORIDE,CL 104 mmol/L (98-110); SODIUM,NA 135 mmol/L (136-146)
[2016-12-09] MEDS ORDERED: Metoprolol Tartrate 50 MG Tab PO SCH ×2 (06:00)
[2016-12-09] MEDS: Insulin Aspart 100 Units/ML 3 ML Pen SUBCUT SCH (06:53)
[2016-12-09] MEDS: predniSONE 20 MG Tab PO SCH (08:12)
[2016-12-09] MEDS: Fludrocortisone 0.1 MG Tab PO SCH (08:14)
[2016-12-09] MEDS ORDERED: Digoxin 250 MCG Tab PO SCH (09:00)
[2016-12-09 12:02] VITALS: BP 88/56
[2016-12-10] MEDS ORDERED: Lisinopril 5 MG Tab PO SCH (09:00)
--- NOTE | 2016-12-12 08:08 | PCM.DCSUM1 ---
[id number] Text/Narrative:: Admission diagnoses: #1. Atrial fibrillation with RVR #2. Dizziness/lightheadedness #3. Diabetes mellitus type 2 Discharge diagnoses: #1. Atrial fibrillation with RVR, improved #2. Dizziness/lightheadedness, improved #3. Diabetes mellitus type 2 #4. Orthostasis #5. Heart failure with reduced ejection fraction 71-year-old male that was admitted with generalized weakness, lightheadedness, dizziness and was found to be in atrial fibrillation with RVR. The patient was given 2 doses of IV Cardizem while in the emergency room which did improve his blood pressure but he soon became tachycardic after. He was admitted to the general medical floor and seen by our promotional advertising assistant. He did not require a Cardizem drip for heart rate control but did have his atrial fibrillation medications adjusted multiple times during admission. It was noted while the patient was on telemetry that at rest his heart rate was stable but with activity his heart rate would become elevated into the 180s with evidence of atrial fibrillation/flutter. He would be symptomatic with dizziness and lightheadedness. At the time of discharge his metoprolol succinate had been discontinued and he had been transitioned over to metoprolol tartrate 75 mg 3 times a day by our promotional advertising assistant. He also was started on digoxin 250 mcg daily which helped improve his heart rate as well. Echocardiogram was done which showed an ejection fraction of 30-35% but it should be noted that the patient was in atrial fibrillation during the study. He was subsequently started on lisinopril 5 mg daily for his reduced ejection fraction but this was held secondary to his hypotension while admitted. Also secondary to the patient's hypotension, he was started on Florinef 0.05 mg daily which did improve his blood pressure mildly during admission. Orthostatic vital signs showed standing blood pressure 150/121, sitting 75/52 and supine 85/57. The patient also had generalized weakness that improved during admission. 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 He was scheduled to finish the taper while admitted but secondary to his generalized weakness, I continued the patient on prednisone 10 mg twice a day until he is able to followup with his oncologist. Patient was seen by physical therapy during admission secondary to his dizziness/ lightheadedness and they signed off stating that this was most likely secondary to his atrial fibrillation. Chest x-ray was also done while admitted which showed a mild perihilar prominence versus vascular congestion which could be correlated with CHF. BNP was 106. Patient was not diuresed during admission as he had no peripheral edema and lungs sounded clear. Troponins were negative. TSH /T4 were negative. Patient did have a magnesium of 1.3 on admission and this was replenished during admission and at 1.9 at discharge. At the time of discharge the patient was ambulating independently, voiding appropriately, tolerating oral intake and denied any chest pain, palpitations, shortness of breath, wheezing, cough. - Discharge Data Discharge Date: 12/09/16 Discharge Disposition: Home, Self-Care 01 Condition: Fair - Discharge Diagnosis/Problem(s) (1) Atrial fibrillation with rapid ventricular response SNOMED Code(s): 314832612357946 ICD Code: I48.91 - UNSPECIFIED ATRIAL FIBRILLATION Status: Acute (2) Near syncope SNOMED Code(s): 716555950 ICD Code: R55 - SYNCOPE AND COLLAPSE Status: Acute (3) Orthostatic hypotension SNOMED Code(s): 81731284 ICD Code: I95.1 - ORTHOSTATIC HYPOTENSION Status: Acute - Patient Instructions Diet: Heart Healthy Diet Activity: As Tolerated Driving: Do Not Drive Showering/Bathing: May Shower Notify Provider of: Fever, Increased Pain, Nausea and/or Vomiting - Discharge Plan Prescriptions/Med Rec: Digoxin [Lanoxin] 250 mcg PO DAILY #30 tablet Fludrocortisone [Florinef] 0.5 tab PO DAILY #15 tablet Metoprolol Tartrate [Lopressor] 75 mg PO TID #90 tablet Rivaroxaban [Xarelto] 20 mg PO WITHDINNER #60 tablet Home Medications: Home Meds Dutasteride [Avodart] 0.5 mg PO BEDTIME 09/21/16 [History] Simvastatin [Zocor] 20 mg PO BEDTIME 09/21/16 [History] Tamsulosin [Flomax] 0.4 mg PO BEDTIME 09/21/16 [History] metFORMIN HCl [Metformin HCl ER] 1,000 mg PO BEDTIME 09/21/16 [History] Glimepiride 1 mg PO WITHBREAKFAST 11/24/16 [History] Prednisone [IMW: predniSONE] 10 mg PO BID 11/24/16 [History] Digoxin [Lanoxin] 250 mcg PO DAILY #30 tablet 12/09/16 [Rx] Fludrocortisone [Florinef] 0.5 tab PO DAILY #15 tablet 12/09/16 [Rx] Metoprolol Tartrate [Lopressor] 75 mg PO TID #90 tablet 12/09/16 [Rx] Rivaroxaban [Xarelto] 20 mg PO WITHDINNER #60 tablet 12/09/16 [Rx] Patient Handouts: Metoprolol tablets, Rivaroxaban oral tablets, Fludrocortisone tablets, Digoxin tablets or capsules, Atrial Fibrillation, Easy- to-Read Referrals: Brandon Maynard MD [Primary Care Provider] - 12/15/16 2:45 pm - Discharge Summary/Plan Comment DC Time >30 min.: No Discharge Summary/Plan Comment: Admission diagnoses: #1. Atrial fibrillation with RVR #2. Dizziness/lightheadedness #3. Diabetes mellitus type 2 Discharge diagnoses: #1. Atrial fibrillation with RVR, improved #2. Dizziness/lightheadedness, improved #3. Diabetes mellitus type 2 #4. Orthostasis #5. Heart failure with reduced ejection fraction 71-year-old male that was admitted with generalized weakness, lightheadedness, dizziness and was found to be in atrial fibrillation with RVR. The patient was given 2 doses of IV Cardizem while in the emergency room which did improve his blood pressure but he soon became tachycardic after. He was admitted to the general medical floor and seen by our promotional advertising assistant. He did not require a Cardizem drip for heart rate control but did have his atrial fibrillation medications adjusted multiple times during admission. It was noted while the patient was on telemetry that at rest his heart rate was stable but with activity his heart rate would become elevated into the 180s with evidence of atrial fibrillation/flutter. He would be symptomatic with dizziness and lightheadedness. At the time of discharge his metoprolol succinate had been discontinued and he had been transitioned over to metoprolol tartrate 75 mg 3 times a day by our promotional advertising assistant. He also was started on digoxin 250 mcg daily which helped improve his heart rate as well. Echocardiogram was done which showed an ejection fraction of 30-35% but it should be noted that the patient was in atrial fibrillation during the study. He was subsequently started on lisinopril 5 mg daily for his reduced ejection fraction but this was held secondary to his hypotension while admitted. Also secondary to the patient's hypotension, he was started on Florinef 0.05 mg daily which did improve his blood pressure mildly during admission. Orthostatic vital signs showed standing blood pressure 150/121, sitting 75/52 and supine 85/57. The patient also had generalized weakness that improved during admission. 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 He was scheduled to finish the taper while admitted but secondary to his generalized weakness, I continued the patient on prednisone 10 mg twice a day until he is able to followup with his oncologist. Patient was seen by physical therapy during admission secondary to his dizziness/ lightheadedness and they signed off stating that this was most likely secondary to his atrial fibrillation. Chest x-ray was also done while admitted which showed a mild perihilar prominence versus vascular congestion which could be correlated with CHF. BNP was 106. Patient was not diuresed during admission as he had no peripheral edema and lungs sounded clear. Troponins were negative. TSH /T4 were negative. Patient did have a magnesium of 1.3 on admission and this was replenished during admission and at 1.9 at discharge. At the time of discharge the patient was ambulating independently, voiding appropriately, tolerating oral intake and denied any chest pain, palpitations, shortness of breath, wheezing, cough. Discharge plan: #1. Patient was discharged home on digoxin 250 mcg daily, Florinef 0.05 mg daily , metoprolol tartrate 75 mg 3 times a day, prednisone 10 mg twice a day and Xarelto 20 mg daily. His metoprolol succinate was discontinued. #2. Patient is scheduled to be set up for a 48-hour Holter monitor on December 12. #3. Patient will see his promotional advertising assistant Dr. Norman Franklin on December 23 at 1:40 PM in [place], [place]. #4. Patient will also be seen by Ramses Lopez at the [facility] in [place]. #5. Patient will followup with his primary care provider, Dr. Maynard on December 12 at 10 AM. - Patient Data Vitals - Most Recent: Last Vital Signs Temp 98.7 F 12/09/16 12:00 Pulse 84 12/09/16 12:00 Resp 18 12/09/16 12:00 BP 88/56 L 12/09/16 12:00 Pulse Ox 92 L 12/09/16 12:00 Weight - Most Recent: 82.282 kg Med Orders - Current: Current Medications Discontinued Medications Acetaminophen (Tylenol) 650 mg PO Q4H PRN PRN Reason: Pain (Mild 1-3)/fever Albuterol (Proventil Neb Soln) 2.5 mg NEB Q4HRRT PRN PRN Reason: Shortness Of Breath/wheezing Digoxin (Lanoxin) 250 mcg PO TID [facility] Last Admin: 12/08/16 09:12 Dose: 250 mcg Digoxin (Lanoxin) 250 mcg IVPUSH ONETIME ONE Stop: 12/08/16 14:01 Last Admin: 12/08/16 14:04 Dose: 250 mcg Digoxin (Lanoxin) 250 mcg IVPUSH ONETIME ONE Stop: 12/08/16 11:53 Last Admin: 12/08/16 12:34 Dose: 250 mcg Digoxin (Lanoxin) 250 mcg IVPUSH ONETIME ONE Stop: 12/08/16 16:01 Last Admin: 12/08/16 16:16 Dose: 250 mcg Digoxin (Lanoxin) 250 mcg PO DAILY [facility] Last Admin: 12/09/16 08:13 Dose: 250 mcg Diltiazem HCl (Diltiazem) 20 mg IVPUSH ONETIME ONE Stop: 12/05/16 12:26 Last Admin: 12/05/16 12:43 Dose: 20 mg Diltiazem HCl (Cardizem Cd) 120 mg PO DAILY [facility] Last Admin: 12/06/16 09:59 Dose: 120 mg Dutasteride (Avodart) 0.5 mg PO BEDTIME [facility] Last Admin: 12/08/16 20:12 Dose: 0.5 mg Fludrocortisone Acetate (Florinef) 0.05 mg PO DAILY [facility] Last Admin: 12/09/16 08:14 Dose: 0.05 mg Glimepiride (Glimepiride) 1 mg PO WITHBREAKFAST [facility] Last Admin: 12/06/16 07:56 Dose: 1 mg Diltiazem HCl 100 mg/ Sodium (Chloride) 100 mls @ 5 mls/hr IV TITRATE [facility]; 5 MG /HR PRN Reason: Protocol Last Admin: 12/05/16 12:43 Dose: 5 mg/hr, 5 mls/hr Sodium Chloride (Normal Saline) 1,000 mls @ 999 mls/hr IV .Bolus ONE Stop: 12/05/16 14:13 Last Admin: 12/05/16 13:14 Dose: 999 mls/hr Magnesium Sulfate 4 gm/ Premix 100 mls @ 50 mls/hr IV ONETIME ONE Stop: 12/05/16 17:43 Last Admin: 12/05/16 16:06 Dose: 50 mls/hr Magnesium Sulfate 2 gm/ Premix 50 mls @ 25 mls/hr IV ONETIME ONE Stop: 12/06/16 11:26 Last Admin: 12/06/16 10:04 Dose: 25 mls/hr Magnesium Sulfate 2 gm/ Premix 50 mls @ 50 mls/hr IV ONETIME ONE Stop: 12/07/16 17:48 Last Admin: 12/07/16 17:45 Dose: 50 mls/hr Magnesium Sulfate 4 gm/ Premix 100 mls @ 50 mls/hr IV ONETIME ONE Stop: 12/08/16 19:31 Last Admin: 12/08/16 17:45 Dose: 50 mls/hr [facility]ulin [facility] Reason: Protocol Last Admin: 12/09/16 06:53 Dose: 1 unit Lisinopril (Prinivil) 5 mg PO DAILY [facility] Last Admin: 12/08/16 09:12 Dose: Not Given Lisinopril (Prinivil) 5 mg PO DAILY [facility] Metformin HCl (Glucophage Xr) 1,000 mg PO BEDTIME [facility] Last Admin: 12/08/16 20:12 Dose: 1,000 mg Metoprolol Succinate (Toprol Xl) 50 mg PO BEDTIME [facility] Last Admin: 12/05/16 21:15 Dose: 50 mg Metoprolol Succinate (Toprol Xl) 50 mg PO ONETIME ONE Stop: 12/06/16 16:01 Last Admin: 12/06/16 16:04 Dose: 50 mg Metoprolol Succinate (Toprol Xl) 50 mg PO Q8H [facility] Last Admin: 12/07/16 07:22 Dose: Not Given Metoprolol Tartrate (Lopressor) 50 mg PO ONETIME ONE Stop: 12/06/16 15:48 Last Admin: 12/06/16 15:57 Dose: Not Given Metoprolol Tartrate (Lopressor) 50 mg PO Q8H [facility] Last Admin: 12/07/16 11:22 Dose: 50 mg Metoprolol Tartrate (Lopressor) 50 mg PO ONETIME ONE Stop: 12/07/16 17:34 Last Admin: 12/07/16 17:59 Dose: 50 mg Metoprolol Tartrate (Lopressor) 50 mg PO ONETIME ONE Stop: 12/07/16 23:01 Last Admin: 12/07/16 22:03 Dose: 50 mg Metoprolol Tartrate (Lopressor) 50 mg PO TID [facility] Metoprolol Tartrate (Lopressor) 50 mg PO TID [facility] Last Admin: 12/08/16 06:09 Dose: 50 mg Metoprolol Tartrate (Lopressor) 50 mg PO QID [facility] Last Admin: 12/08/16 11:31 Dose: 50 mg Metoprolol Tartrate (Lopressor) 50 mg PO ONETIME [facility] Last Admin: 12/08/16 17:58 Dose: 50 mg Metoprolol Tartrate (Lopressor) 50 mg PO ONETIME ONE Stop: 12/09/16 00:01 Last Admin: 12/08/16 23:05 Dose: 50 mg Metoprolol Tartrate (Lopressor) 50 mg PO TID@0600,1400,2200 [facility] Metoprolol Tartrate (Lopressor) 75 mg PO TID@0600,1400,2200 [facility] Last Admin: 12/09/16 06:20 Dose: 75 mg Ondansetron HCl (Zofran Odt) 4 mg PO Q4H PRN PRN Reason: nausea, able to take PO Prednisone (Prednisone) 10 mg PO BID [facility] Prednisone (Prednisone) 10 mg PO BIDMEALS [facility] Last Admin: 12/09/16 08:12 Dose: 10 mg Rivaroxaban (Xarelto) 20 mg PO ACDINNER [facility] Rivaroxaban (Xarelto) 15 mg PO BIDMEALS [facility] Last Admin: 12/05/16 19:58 Dose: Not Given Rivaroxaban (Xarelto) 15 mg PO BIDMEALS [facility] Last Admin: 12/06/16 07:56 Dose: 15 mg Rivaroxaban (Xarelto) 20 mg PO WITHDINNER [facility] Last Admin: 12/08/16 17:37 Dose: 20 mg Simvastatin (Zocor) 20 mg PO BEDTIME [facility] Last Admin: 12/08/16 20:12 Dose: 20 mg Tamsulosin HCl (Flomax) 0.4 mg PO BEDTIME [facility] Last Admin: 12/08/16 20:12 Dose: 0.4 mg *Q Meaningful Use (DIS) - VTE *Q VTE Criteria *Q: - Stroke *Q Stroke Criteria *Q: - AMI *Q AMI Criteria *Q: <Munir Billingsley - Last Filed: 12/13/16 11:20> - Patient Data Vitals - Most Recent: Last Vital Signs Temp 37.1 C 12/09/16 12:00 Pulse 84 12/09/16 12:00 Resp 18 12/09/16 12:00 BP 88/56 L 12/09/16 12:00 Pulse Ox 92 L 12/09/16 12:00 Med Orders - Current: Current Medications Discontinued Medications Acetaminophen (Tylenol) 650 mg PO Q4H PRN PRN Reason: Pain (Mild 1-3)/fever Albuterol (Proventil Neb Soln) 2.5 mg NEB Q4HRRT PRN PRN Reason: Shortness Of Breath/wheezing Digoxin (Lanoxin) 250 mcg PO TID [facility] Last Admin: 12/08/16 09:12 Dose: 250 mcg Digoxin (Lanoxin) 250 mcg IVPUSH ONETIME ONE Stop: 12/08/16 14:01 Last Admin: 12/08/16 14:04 Dose: 250 mcg Digoxin (Lanoxin) 250 mcg IVPUSH ONETIME ONE Stop: 12/08/16 11:53 Last Admin: 12/08/16 12:34 Dose: 250 mcg Digoxin (Lanoxin) 250 mcg IVPUSH ONETIME ONE Stop: 12/08/16 16:01 Last Admin: 12/08/16 16:16 Dose: 250 mcg Digoxin (Lanoxin) 250 mcg PO DAILY [facility] Last Admin: 12/09/16 08:13 Dose: 250 mcg Diltiazem HCl (Diltiazem) 20 mg IVPUSH ONETIME ONE Stop: 12/05/16 12:26 Last Admin: 12/05/16 12:43 Dose: 20 mg Diltiazem HCl (Cardizem Cd) 120 mg PO DAILY [facility] Last Admin: 12/06/16 09:59 Dose: 120 mg Dutasteride (Avodart) 0.5 mg PO BEDTIME [facility] Last Admin: 12/08/16 20:12 Dose: 0.5 mg Fludrocortisone Acetate (Florinef) 0.05 mg PO DAILY [facility] Last Admin: 12/09/16 08:14 Dose: 0.05 mg Glimepiride (Glimepiride) 1 mg PO WITHBREAKFAST [facility] Last Admin: 12/06/16 07:56 Dose: 1 mg Diltiazem HCl 100 mg/ Sodium (Chloride) 100 mls @ 5 mls/hr IV TITRATE [facility]; 5 MG /HR PRN Reason: Protocol Last Admin: 12/05/16 12:43 Dose: 5 mg/hr, 5 mls/hr Sodium Chloride (Normal Saline) 1,000 mls @ 999 mls/hr IV .Bolus ONE Stop: 12/05/16 14:13 Last Admin: 12/05/16 13:14 Dose: 999 mls/hr Magnesium Sulfate 4 gm/ Premix 100 mls @ 50 mls/hr IV ONETIME ONE Stop: 12/05/16 17:43 Last Admin: 12/05/16 16:06 Dose: 50 mls/hr Magnesium Sulfate 2 gm/ Premix 50 mls @ 25 mls/hr IV ONETIME ONE Stop: 12/06/16 11:26 Last Admin: 12/06/16 10:04 Dose: 25 mls/hr Magnesium Sulfate 2 gm/ Premix 50 mls @ 50 mls/hr IV ONETIME ONE Stop: 12/07/16 17:48 Last Admin: 12/07/16 17:45 Dose: 50 mls/hr Magnesium Sulfate 4 gm/ Premix 100 mls @ 50 mls/hr IV ONETIME ONE Stop: 12/08/16 19:31 Last Admin: 12/08/16 17:45 Dose: 50 mls/hr Insulin Aspart (Novolog) 0 unit SUBCUT TIDAC [facility] PRN Reason: Protocol Last Admin: 12/09/16 06:53 Dose: 1 unit Lisinopril (Prinivil) 5 mg PO DAILY [facility] Last Admin: 12/08/16 09:12 Dose: Not Given Lisinopril (Prinivil) 5 mg PO DAILY [facility] Metformin HCl (Glucophage Xr) 1,000 mg PO BEDTIME [facility] Last Admin: 12/08/16 20:12 Dose: 1,000 mg Metoprolol Succinate (Toprol Xl) 50 mg PO BEDTIME [facility] Last Admin: 12/05/16 21:15 Dose: 50 mg Metoprolol Succinate (Toprol Xl) 50 mg PO ONETIME ONE Stop: 12/06/16 16:01 Last Admin: 12/06/16 16:04 Dose: 50 mg Metoprolol Succinate (Toprol Xl) 50 mg PO Q8H [facility] Last Admin: 12/07/16 07:22 Dose: Not Given Metoprolol Tartrate (Lopressor) 50 mg PO ONETIME ONE Stop: 12/06/16 15:48 Last Admin: 12/06/16 15:57 Dose: Not Given Metoprolol Tartrate (Lopressor) 50 mg PO Q8H [facility] Last Admin: 12/07/16 11:22 Dose: 50 mg Metoprolol Tartrate (Lopressor) 50 mg PO ONETIME ONE Stop: 12/07/16 17:34 Last Admin: 12/07/16 17:59 Dose: 50 mg Metoprolol Tartrate (Lopressor) 50 mg PO ONETIME ONE Stop: 12/07/16 23:01 Last Admin: 12/07/16 22:03 Dose: 50 mg Metoprolol Tartrate (Lopressor) 50 mg PO TID [facility] Metoprolol Tartrate (Lopressor) 50 mg PO TID [facility] Last Admin: 12/08/16 06:09 Dose: 50 mg Metoprolol Tartrate (Lopressor) 50 mg PO QID [facility] Last Admin: 12/08/16 11:31 Dose: 50 mg Metoprolol Tartrate (Lopressor) 50 mg PO ONETIME [facility] Last Admin: 12/08/16 17:58 Dose: 50 mg Metoprolol Tartrate (Lopressor) 50 mg PO ONETIME ONE Stop: 12/09/16 00:01 Last Admin: 12/08/16 23:05 Dose: 50 mg Metoprolol Tartrate (Lopressor) 50 mg PO TID@0600,1400,2200 [facility] Metoprolol Tartrate (Lopressor) 75 mg PO TID@0600,1400,2200 [facility] Last Admin: 12/09/16 06:20 Dose: 75 mg Ondansetron HCl (Zofran Odt) 4 mg PO Q4H PRN PRN Reason: nausea, able to take PO Prednisone (Prednisone) 10 mg PO BID [facility] Prednisone (Prednisone) 10 mg PO BIDMEALS [facility] Last Admin: 12/09/16 08:12 Dose: 10 mg Rivaroxaban (Xarelto) 20 mg PO ACDINNER [facility] Rivaroxaban (Xarelto) 15 mg PO BIDMEALS [facility] Last Admin: 12/05/16 19:58 Dose: Not Given Rivaroxaban (Xarelto) 15 mg PO BIDMEALS [facility] Last Admin: 12/06/16 07:56 Dose: 15 mg Rivaroxaban (Xarelto) 20 mg PO WITHDINNER [facility] Last Admin: 12/08/16 17:37 Dose: 20 mg Simvastatin (Zocor) 20 mg PO BEDTIME [facility] Last Admin: 12/08/16 20:12 Dose: 20 mg Tamsulosin HCl (Flomax) 0.4 mg PO BEDTIME [facility] Last Admin: 12/08/16 20:12 Dose: 0.4 mg *Q Meaningful Use (DIS) - VTE *Q VTE Criteria *Q: - Stroke *Q Stroke Criteria *Q: - AMI *Q AMI Criteria *Q: - Free Text/Narrative Note: I have examined the patient. I have discussed findings and treatment plan with resident. I agree with the assessment and plan outlined in the following resident's note.
== END 2016-12-09 12:35 | disposition home or self-care (01) | DRG 309 ==
LOC: MW.ED 11:06 → MW.MS 12:57 → UNDOADMOB 13:22 → MW.MS 13:22 → OBSVTOIN 12-07 14:12
PROVIDERS: ADMIT Internal Medicine; ATTEND Internal Medicine
DX: I48.91 Unspecified atrial fibrillation (principal); I50.20 Unspecified systolic (congestive) heart failure; R55 Syncope and collapse; I95.1 Orthostatic hypotension; Z87.11 Personal history of peptic ulcer disease; Z87.442 Personal history of urinary calculi; Z79.01 Long term (current) use of anticoagulants; R42 Dizziness and giddiness; E11.42 Type 2 diabetes mellitus with diabetic polyneuropathy; E78.00 Pure hypercholesterolemia, unspecified; I10 Essential (primary) hypertension; Z88.8 Allergy status to other drugs, medicaments and biological substances; Z79.899 Other long term (current) drug therapy
CPT/HCPCS: 36415 ×3; 71010; 80048 ×2; 80053; 82550; 82962 ×6; 83735 ×3; 83880; 84439; 84443; 84484; 85025 ×3; 93005 ×2; 93306; 96361; 96374; 96376; 97161; 99285; A9270 ×19; J1815; J3475 ×2; J7030; J7040; 96365; 96375; G0378; J1160; J3490

== ENCOUNTER → 2016-12-12 | Outpatient (CLI) | payer MEDICARE, OTHER | LOC: MW.CHFP 08:00 | PROVIDERS: ATTEND Emergency Medicine | DX: R42 Dizziness and giddiness (principal); I48.91 Unspecified atrial fibrillation; D69.6 Thrombocytopenia, unspecified | CPT/HCPCS: G0463 ==

== ENCOUNTER → 2016-12-21 | Outpatient (CLI) | payer MEDICARE, OTHER ==
[2016-12-21 12:04] LABS: CHLORIDE,CL 106 mmol/L (98-110); SODIUM,NA 141 mmol/L (136-146)
== END ==
LOC: MW.CHIM 11:26
PROVIDERS: ATTEND Internal Medicine
DX: I48.91 Unspecified atrial fibrillation (principal)
CPT/HCPCS: 36415; 80053; 84439; 84443; 85610; 85730

== ENCOUNTER 2021-09-02 14:30 | Emergency (ER) | payer MEDICARE, OTHER ==
[2021-09-02 15:35] LABS: CARBON DIOXIDE,CO2 29.4 mmol/L (21.0-32.0); POTASSIUM,K 3.9 mmol/L (3.5-5.1)
[2021-09-02 16:54] VITALS: BP 111/61; PULSE 50
== END 2021-09-02 16:56 | disposition home or self-care (01) ==
LOC: MW.ED 14:30
DX: N20.2 Calculus of kidney with calculus of ureter (principal); I48.91 Unspecified atrial fibrillation; E78.00 Pure hypercholesterolemia, unspecified; I10 Essential (primary) hypertension; E11.42 Type 2 diabetes mellitus with diabetic polyneuropathy; Z79.01 Long term (current) use of anticoagulants; Z88.1 Allergy status to other antibiotic agents; Z91.018 Allergy to other foods
CPT/HCPCS: 36415; 74176; 74176-26; 80053; 81001; 85025; 99284-25

== ENCOUNTER 2022-03-03 00:32 | Inpatient (IN) | payer MEDICARE, OTHER ==
[2022-03-03 01:16] LABS: CARBON DIOXIDE,CO2 26.2 mmol/L (21.0-32.0); POTASSIUM,K 3.3 mmol/L (3.5-5.1)
[2022-03-03] MEDS ORDERED: cefTRIAXone 1 GM in Sodium Chloride 0.9% 50 ML IV ONE (01:36)
[2022-03-03 02:00] LABS: BILIRUBIN INDIRECT 0.4
[2022-03-03] MEDS ORDERED: Sodium Chloride 0.9% 1,000 ML IV ONE ×2 (02:00→02:34)
[2022-03-03] MEDS ORDERED: Meropenem Premix 50 ML IV ONE ×2 (02:14→02:42)
[2022-03-03] MEDS ORDERED: VANCOmycin 2 GM/400 ML 400 ML IV ONE (02:30)
[2022-03-03] MEDS ORDERED: Sodium Chloride 0.9% 500 ML IV SCH (02:45)
[2022-03-03] MEDS ORDERED: Iopamidol 755 MG/ML 500 ML Multipack Bottle IVPUSH STA (02:52)
[2022-03-03] MEDS ORDERED: Lactated Ringers 1,000 ML IV ONE (07:08)
[2022-03-03] MEDS ORDERED: Sodium Chloride 0.9% 2.5 ML Syringe FLUSH PRN (07:55)
[2022-03-03] MEDS ORDERED: Sodium Chloride 0.9% 10 ML Syringe FLUSH PRN (07:55)
[2022-03-03] MEDS ORDERED: Lactated Ringers 1,000 ML IV SCH (08:00)
[2022-03-03] MEDS ORDERED: Ondansetron 4 MG/2 ML SDV IVPUSH PRN (08:00)
[2022-03-03] MEDS ORDERED: Glucagon,Human Recombinant 1 MG Vial IM PRN (08:46)
[2022-03-03] MEDS ORDERED: 50% Dextrose in Water 50 ML Syringe IVPUSH PRN (08:46)
[2022-03-03] MEDS ORDERED: Docusate Sodium 100 MG Cap PO PRN (09:00)
[2022-03-03] MEDS: Lactated Ringers 1,000 ML IV SCH ×2 (09:20→14:57)
[2022-03-03 11:08] LABS: CARBON DIOXIDE,CO2 23.7 mmol/L (21.0-32.0); POTASSIUM,K 3.6 mmol/L (3.5-5.1)
[2022-03-03] MEDS: Insulin Aspart 100 Units/ML 3 ML Pen SUBCUT SCH ×2 (12:18→17:16)
[2022-03-03] MEDS: Meropenem Premix 1 GM in Premix Bag 1 BAG IV SCH (14:56)
[2022-03-03] MEDS: Acetaminophen 325 MG Tab PO PRN (16:22)
[2022-03-03] MEDS: Rivaroxaban 10 MG Tab PO SCH (16:30)
[2022-03-03] MEDS ORDERED: Albuterol/Ipratropium 3.0-0.5 MG/3 ML Neb Soln NEB PRN (18:00)
[2022-03-03] MEDS: Simvastatin 20 MG Tab PO SCH (20:31)
[2022-03-04] MEDS: Lactated Ringers 1,000 ML IV SCH ×3 (00:11→21:46)
[2022-03-04] MEDS: Acetaminophen 325 MG Tab PO PRN ×3 (00:23→21:37)
[2022-03-04] MEDS: Meropenem Premix 1 GM in Premix Bag 1 BAG IV SCH ×2 (03:00→14:03)
[2022-03-04 07:44] LABS: CARBON DIOXIDE,CO2 26.2 mmol/L (21.0-32.0); POTASSIUM,K 3.4 mmol/L (3.5-5.1)
[2022-03-04] MEDS ORDERED: Potassium Chloride 20 MEQ Tab.ER PO ONE (07:51)
[2022-03-04] MEDS: Insulin Aspart 100 Units/ML 3 ML Pen SUBCUT SCH ×3 (07:51→17:00)
[2022-03-04] MEDS ORDERED: Magnesium Sulfate/Water 2 GM in Premix Bag 1 BAG IV ONE (07:51)
[2022-03-04] MEDS: VANCOmycin 1.5 GM/300 ML 1.5 GM in Premix Bag 1 BAG IV SCH (10:20)
[2022-03-04] MEDS: Rivaroxaban 10 MG Tab PO SCH (17:22)
[2022-03-04] MEDS: Metoprolol Tartrate 50 MG Tab PO SCH (21:35)
[2022-03-04] MEDS: Simvastatin 20 MG Tab PO SCH (21:35)
[2022-03-05] MEDS: Meropenem Premix 1 GM in Premix Bag 1 BAG IV SCH ×2 (03:41→16:31)
[2022-03-05] MEDS: Lactated Ringers 1,000 ML IV SCH ×2 (05:31→19:41)
[2022-03-05 07:18] LABS: CARBON DIOXIDE,CO2 27.5 mmol/L (21.0-32.0); POTASSIUM,K 3.9 mmol/L (3.5-5.1)
[2022-03-05] MEDS: Insulin Aspart 100 Units/ML 3 ML Pen SUBCUT SCH ×3 (07:55→17:15)
[2022-03-05] MEDS: Metoprolol Tartrate 50 MG Tab PO SCH ×2 (07:59→21:24)
[2022-03-05] MEDS: VANCOmycin 1.5 GM/300 ML 1.5 GM in Premix Bag 1 BAG IV SCH (10:05)
[2022-03-05] MEDS: Rivaroxaban 10 MG Tab PO SCH (17:38)
[2022-03-05] MEDS: Simvastatin 20 MG Tab PO SCH (21:24)
[2022-03-06] MEDS: Meropenem Premix 1 GM in Premix Bag 1 BAG IV SCH ×2 (04:00→15:13)
[2022-03-06] MEDS: Insulin Aspart 100 Units/ML 3 ML Pen SUBCUT SCH ×3 (07:28→16:56)
[2022-03-06 08:04] LABS: CARBON DIOXIDE,CO2 25.8 mmol/L (21.0-32.0); POTASSIUM,K 3.5 mmol/L (3.5-5.1)
[2022-03-06] MEDS: Metoprolol Tartrate 50 MG Tab PO SCH ×2 (08:20→20:37)
[2022-03-06] MEDS: VANCOmycin 1.5 GM/300 ML 1.5 GM in Premix Bag 1 BAG IV SCH (09:31)
[2022-03-06] MEDS: Rivaroxaban 10 MG Tab PO SCH (17:07)
[2022-03-06] MEDS: Simvastatin 20 MG Tab PO SCH (20:37)
[2022-03-07] MEDS: Meropenem Premix 1 GM in Premix Bag 1 BAG IV SCH ×2 (03:55→04:41)
[2022-03-07] MEDS: Insulin Aspart 100 Units/ML 3 ML Pen SUBCUT SCH (06:37)
[2022-03-07 06:43] LABS: CARBON DIOXIDE,CO2 26.4 mmol/L (21.0-32.0); POTASSIUM,K 3.7 mmol/L (3.5-5.1)
[2022-03-07] MEDS ORDERED: Levofloxacin 750 MG Tab PO ONE (06:58)
[2022-03-07 07:54] VITALS: PULSE 88
[2022-03-07] MEDS ORDERED: VANCOmycin 1.5 GM/300 ML 1.5 GM in Premix Bag 1 BAG IV SCH (08:00)
[2022-03-07 08:14] VITALS: BP 158/88
[2022-03-07] MEDS: Metoprolol Tartrate 50 MG Tab PO SCH (08:14)
== END 2022-03-07 12:45 | disposition home or self-care (01) | DRG 698 ==
LOC: MW.ED 00:32 → MW.MS 05:45
PROVIDERS: ADMIT Student in an Organized Health Care Education/Training Program; ATTEND Student in an Organized Health Care Education/Training Program
PROC: XW033N5 Introduction of Meropenem-vaborbactam Anti-infective into Peripheral Vein, Percutaneous Approach, New Technology Group 5 (ICD-10-PCS; principal; 2022-03-03)
PROC: 3E03329 Introduction of Other Anti-infective into Peripheral Vein, Percutaneous Approach (ICD-10-PCS; 2022-03-03)
DX: T83.518A Infection and inflammatory reaction due to other urinary catheter, initial encounter (principal); N12 Tubulo-interstitial nephritis, not specified as acute or chronic; Z96.0 Presence of urogenital implants; A41.9 Sepsis, unspecified organism; N10 Acute pyelonephritis; E78.5 Hyperlipidemia, unspecified; I48.91 Unspecified atrial fibrillation; Z85.828 Personal history of other malignant neoplasm of skin; Z20.822 Contact with and (suspected) exposure to COVID-19; Z87.11 Personal history of peptic ulcer disease; E78.00 Pure hypercholesterolemia, unspecified; Z91.018 Allergy to other foods; I10 Essential (primary) hypertension; E11.42 Type 2 diabetes mellitus with diabetic polyneuropathy; Z79.01 Long term (current) use of anticoagulants; Z88.8 Allergy status to other drugs, medicaments and biological substances; Z88.1 Allergy status to other antibiotic agents; Z79.84 Long term (current) use of oral hypoglycemic drugs; Z79.899 Other long term (current) drug therapy; Z87.442 Personal history of urinary calculi
CPT/HCPCS: 36415; 71045; 74177; 80048; 80076; 81001; 83605; 85025; 85610; 87040 ×2; 87086; 96365; 96367; 99285; J0696; J2185; J3370; J7030 ×2; J7040; Q9967; U0002; 71046; 71046-26; 80202; 82947; 83735; 99222; 99231; 99232; 99238; A9270-GY; J1815-GY; J3475; J7120